=== PATIENT | female | born 1935 | race Caucasian/White ===

== ENCOUNTER 2017-05-11 01:12 | Inpatient (IN) ==
[2017-05-11 03:19] LABS: Basophils % 0.6 % (0.0-0.8); Eosinophils % 0.6 % (0.00-10.9); Hematocrit 21.2 VOL% (35.7-47.0); Immature Granulocytes % 0.4 %; Immature Granulocytes Absolute 0.02 #; Lymphocytes # 0.6 10*3/uL (1.4-4.0); Lymphocytes % 11.9 % (21.3-54.2); Mean Corpuscular HGB Conc 27.4 GM/DL (32-36); Mean Corpuscular Hemoglobin 22 PG (27-34); Mean Corpuscular Volume 79.1 FL (87-102); Mean Platelet Volume 10.1 FL (9.6-12.0); Monocytes # 0.6 10*3/uL (0.11-0.8); Monocytes % 11.9 % (1.7-12.7); Neutrophils # 3.9 10*3/uL (1.4-7.4); Neutrophils % 74.6 % (38.7-73.9); Platelet Count 164 T/CUMM (130-400); Red Blood Count 2.68 MC/CUMM (3.8-5.5); Red Cell Distribution Width 19.6 % (9.3-17.3); White Blood Count 5.2 T/CUMM (4-12)
[2017-05-11 03:22] LABS: Hemoglobin 5.8 GM/DL (12.0-16.0)
[2017-05-11 03:33] LABS: Alanine Aminotransferase 20 U/L (13-56); Albumin 3.2 G/DL (3.4-5.0); Alkaline Phosphatase 65 U/L (45-117); Aspartate Amino Transferase 48 U/L (0-37); Bilirubin,Total < 0.39 MG/DL (0.2-1.0); Blood Urea Nitrogen 18 MG/DL (7-18); Calcium 8.3 MG/DL (8.5-10.1); Glucose 98 MG/DL (74-106); Osmolality,Calculated 278.5 MOS/KG (273-304); Potassium 4.2 MMOL/L (3.5-5.1); Sodium 139 MMOL/L (136-145)
[2017-05-11] MEDS ORDERED: FUROSEMIDE 40 MG/4 ML VIAL IV PRN (03:50)
[2017-05-11] MEDS ORDERED: SODIUM CHLORIDE 0.9% 1,000 ML IV PRN (03:50)
[2017-05-11 03:51] LABS: Hypochromasia 3+; Macrocytosis 2+; Stomatocytes 1+
[2017-05-11] MEDS ORDERED: ONDANSETRON 4 MG/2 ML VIAL IV PRN (03:55)
[2017-05-11] MEDS ORDERED: BISACODYL 5 MG TABLET PO PRN (03:55)
[2017-05-11] MEDS ORDERED: ACETAMINOPHEN 325 MG TABLET PO PRN (03:55)
[2017-05-11] MEDS ORDERED: ALBUTEROL/IPRATROPIUM 3 ML NEB RESP TX PRN (04:12)
[2017-05-11] MEDS ORDERED: FUROSEMIDE 20 MG/2 ML VIAL IV SCH (08:00)
[2017-05-11] MEDS: ALBUTEROL/IPRATROPIUM 3 ML NEB RESP TX SCH ×4 (08:11→23:17)
[2017-05-11] MEDS ORDERED: LORazepam 0.5 MG TABLET PO SCH (09:00)
[2017-05-11 09:33] LABS: Hematocrit 25.8 VOL% (35.7-47.0); Hemoglobin 7.5 GM/DL (12.0-16.0)
[2017-05-11] MEDS: PANTOPRAZOLE 40 MG TABLET PO SCH (09:36)
[2017-05-11] MEDS: ISOSORBIDE MONONITRATE 30 MG TABLET PO SCH (09:36)
[2017-05-11] MEDS: ARFORMOTEROL 15 MCG/2 ML NEB RESP TX SCH ×2 (10:10→20:19)
[2017-05-11] MEDS: ALPRAZolam 0.5 MG TABLET PO SCH ×2 (11:00→20:00)
[2017-05-11] MEDS: MOMETASONE 220 MCG/PUFF INHALER 14 DOSE INH SCH ×2 (11:01→21:00)
[2017-05-11] MEDS ORDERED: ONDANSETRON 4 MG TABLET PO PRN (12:34)
[2017-05-11] MEDS ORDERED: ALBUTEROL 2.5 MG/3 ML NEB RESP TX PRN (12:34)
[2017-05-11] MEDS ORDERED: POLYETHYLENE GLYCOL POWDER 17 GM PACK PO PRN (12:34)
[2017-05-11] MEDS ORDERED: ACETAMINOPHEN 500 MG TABLET PO PRN (12:34)
[2017-05-11] MEDS ORDERED: NITROGLYCERIN SL 0.4 MG TABLET SL PRN (12:34)
[2017-05-11] MEDS ORDERED: FLUTICASONE 50 MCG NASAL SPRAY 16 GM BOTTLE BOTH NARES PRN (12:34)
[2017-05-11] MEDS ORDERED: CETIRIZINE 10 MG TABLET PO PRN (12:34)
[2017-05-11] MEDS ORDERED: LACTULOSE 20 GM/30 ML UDCUP PO PRN (12:34)
[2017-05-11] MEDS ORDERED: DOCUSATE SODIUM 100 MG CAPSULE PO SCH (13:00)
[2017-05-11] MEDS: FUROSEMIDE 20 MG/2 ML VIAL IV SCH ×2 (13:21→16:35)
[2017-05-11] MEDS: MULTIVITAMIN (CENTRUM) TABLET PO SCH (13:41)
[2017-05-11] MEDS: THEOPHYLLINE ER 300 MG TABLET PO SCH (16:37)
[2017-05-11 18:34] LABS: Apearance,Urine CLEAR (Clear); Bacteria,Urine Occasional /HPF (Few); Bilirubin,Urine Negative (Negative); Blood, Urine Small mg/dL (Negative); Glucose,Urine (UA) Negative (Negative); Ketones,Urine Negative (Negative); Mucus,Urine Occasional /LPF (Occasional); Nitrite,Urine Negative (Negative); Protein,Urine Negative; RBC,Urine 12 /HPF (0-4); Urine Color Yellow (Yellow); Urine Specific Gravity 1.011 (1.001-1.035); Urine Urobilinogen < 2.0 EU/DL (0.2-1.0); WBC,Urine 4 /HPF (0-6)
[2017-05-11] MEDS ORDERED: MONTELUKAST 10 MG TABLET PO SCH (21:00)
[2017-05-11] MEDS ORDERED: ROSUVASTATIN 10 MG TABLET PO SCH (21:00)
[2017-05-11] MEDS: METOPROLOL TARTRATE 25 MG TABLET PO SCH (22:12)
[2017-05-11 22:56] LABS: Hematocrit 32.9 VOL% (35.7-47.0); Hemoglobin 9.8 GM/DL (12.0-16.0)
[2017-05-12] MEDS: ALBUTEROL/IPRATROPIUM 3 ML NEB RESP TX SCH ×3 (01:41→13:28)
[2017-05-12 05:52] LABS: Basophils % 0.4 % (0.0-0.8); Eosinophils # 0.1 10*3/uL (0.0-0.87); Eosinophils % 0.9 % (0.00-10.9); Hematocrit 33.4 VOL% (35.7-47.0); Hemoglobin 10.1 GM/DL (12.0-16.0); Immature Granulocytes % 0.1 %; Immature Granulocytes Absolute 0.01 #; Lymphocytes # 0.6 10*3/uL (1.4-4.0); Lymphocytes % 8.9 % (21.3-54.2); Mean Corpuscular HGB Conc 30.2 GM/DL (32-36); Mean Corpuscular Hemoglobin 25 PG (27-34); Mean Corpuscular Volume 83.1 FL (87-102); Monocytes # 0.7 10*3/uL (0.11-0.8); Monocytes % 10.1 % (1.7-12.7); Neutrophils # 5.4 10*3/uL (1.4-7.4); Neutrophils % 79.6 % (38.7-73.9); Platelet Count 154 T/CUMM (130-400); Red Blood Count 4.02 MC/CUMM (3.8-5.5); Red Cell Distribution Width 18.6 % (9.3-17.3); White Blood Count 6.7 T/CUMM (4-12)
[2017-05-12 06:09] LABS: Calcium 8.5 MG/DL (8.5-10.1); Osmolality,Calculated 281.4 MOS/KG (273-304); Potassium 3.7 MMOL/L (3.5-5.1)
[2017-05-12] MEDS: ARFORMOTEROL 15 MCG/2 ML NEB RESP TX SCH (07:24)
[2017-05-12] MEDS ORDERED: POLYETHYLENE GLYCOL POWDER 17 GM PACK PO SCH ×2 (09:00→21:00)
[2017-05-12] MEDS ORDERED: POTASSIUM CHLORIDE 10 MEQ TABLET PO SCH (09:00)
[2017-05-12] MEDS: THEOPHYLLINE ER 300 MG TABLET PO SCH ×2 (10:00→18:10)
[2017-05-12] MEDS: PANTOPRAZOLE 40 MG TABLET PO SCH (10:00)
[2017-05-12] MEDS: ALPRAZolam 0.5 MG TABLET PO SCH (10:01)
[2017-05-12] MEDS: ISOSORBIDE MONONITRATE 30 MG TABLET PO SCH (10:01)
[2017-05-12] MEDS: MULTIVITAMIN (CENTRUM) TABLET PO SCH (10:01)
[2017-05-12] MEDS: METOPROLOL TARTRATE 25 MG TABLET PO SCH (10:01)
[2017-05-12] MEDS: FUROSEMIDE 20 MG/2 ML VIAL IV SCH ×2 (10:16→18:10)
[2017-05-12] MEDS: MOMETASONE 220 MCG/PUFF INHALER 14 DOSE INH SCH (10:23)
[2017-05-12] MEDS ORDERED: ROSUVASTATIN 10 MG TABLET PO SCH (12:29)
[2017-05-12 17:00] VITALS: BP 114/58
== END 2017-05-12 18:31 | DRG 280 ==
LOC: EDUNIT# → EDBD → N.ED 01:12 → N.TELES 03:46
PROVIDERS: ADMIT Internal Medicine; ATTEND Internal Medicine

== ENCOUNTER 2017-05-13 11:38 | Inpatient (IN) ==
[2017-05-13] MEDS ORDERED: PROPOFOL 1,000 MG/100 ML BOTTLE IV ONE (12:46)
[2017-05-13] MEDS ORDERED: ALBUTEROL/IPRATROPIUM 3 ML NEB RESP TX PRN (13:13)
[2017-05-13] MEDS ORDERED: ONDANSETRON 4 MG/2 ML VIAL IV PRN (13:13)
[2017-05-13 13:24] LABS: ABG Base Excess 1.5 MMOL/L (-2.5-2.5); ABG HCO3 25.8 MMOL/L (20-26); ABG Oxygen Saturation 99.9 % (95-100); ABG PCO2 55.2 MM HG (35-48); ABG PH 7.321 (7.35-7.45); ABG TCO2 26.2 MMOL/L (23-27); Allen Test Positive; Pt O2 Delivery Device Ventilator
[2017-05-13] MEDS ORDERED: NOREPINEPHRINE 4 MG/4 ML VIAL IV ONE (13:42)
[2017-05-13] MEDS: PANTOPRAZOLE 40 MG VIAL IV SCH (13:57)
[2017-05-13] MEDS: NOREPINEPHRINE 8 MG in SODIUM CHLORIDE 0.9% 242 ML IV SCH (13:57)
[2017-05-13] MEDS: PROPOFOL 1,000 MG/100 ML BOTTLE IV SCH (13:57)
[2017-05-13 14:07] LABS: Basophils % 0.1 % (0.0-0.8); Hematocrit 35.2 VOL% (35.7-47.0); Hemoglobin 10.4 GM/DL (12.0-16.0); Immature Granulocytes % 0.4 %; Immature Granulocytes Absolute 0.04 #; Lymphocytes # 0.4 10*3/uL (1.4-4.0); Lymphocytes % 3.9 % (21.3-54.2); Mean Corpuscular HGB Conc 29.5 GM/DL (32-36); Mean Corpuscular Hemoglobin 25 PG (27-34); Mean Platelet Volume 10.5 FL (9.6-12.0); Monocytes # 0.7 10*3/uL (0.11-0.8); Neutrophils % 87.6 % (38.7-73.9); Platelet Count 158 T/CUMM (130-400); Red Blood Count 4.14 MC/CUMM (3.8-5.5); Red Cell Distribution Width 20.3 % (9.3-17.3); White Blood Count 9.2 T/CUMM (4-12)
[2017-05-13 14:13] LABS: INR 1.1; PT Patient Result 11.8 SECS
[2017-05-13] MEDS ORDERED: SODIUM CHLORIDE 0.9% 500 ML IV ONE (14:24)
[2017-05-13] MEDS ORDERED: LEVOFLOXACIN INJ 500 MG in PREMIX 1 EACH IV SCH (14:30)
[2017-05-13] MEDS: SODIUM CHLORIDE 0.9% 1,000 ML IV SCH (14:31)
[2017-05-13 14:34] LABS: Albumin 3.4 G/DL (3.4-5.0); Bilirubin,Total 0.7 MG/DL (0.2-1.0); Calcium 8.5 MG/DL (8.5-10.1); Osmolality,Calculated 291.3 MOS/KG (273-304); Potassium 4.5 MMOL/L (3.5-5.1); Total Protein 6.2 G/DL (6.4-8.3)
[2017-05-13] MEDS ORDERED: LEVOFLOXACIN INJ 250 MG in PREMIX 1 EACH IV SCH (15:00)
[2017-05-13 15:34] LABS: Apearance,Urine CLOUDY (Clear); Bilirubin,Urine Negative (Negative); Blood, Urine Large mg/dL (Negative); Glucose,Urine (UA) Negative (Negative); Hyaline Casts,Urine 23 /LPF (0-3); Ketones,Urine Negative (Negative); Mucus,Urine Occasional /LPF (Occasional); Nitrite,Urine Negative (Negative); Protein,Urine 100 MG/DL; RBC,Urine 490 /HPF (0-4); Squamous Epithelial Cell,Urine Occasional /HPF (0-10); Urine Color Amber (Yellow); Urine Specific Gravity 1.016 (1.001-1.035); WBC,Urine 56 /HPF (0-6)
[2017-05-13] MEDS: MEROPENEM 500 MG in SYRINGE 1 EACH IV SCH (16:37)
[2017-05-13] MEDS ORDERED: SODIUM CHLORIDE 0.9% 1,200 ML IV ONE (16:38)
[2017-05-13] MEDS ORDERED: ROSUVASTATIN 10 MG TABLET PO SCH (21:00)
[2017-05-13] MEDS: ALBUTEROL/IPRATROPIUM 3 ML NEB RESP TX SCH (21:16)
[2017-05-13 21:25] LABS: Poikilocytosis 1+
[2017-05-13 21:26] LABS: Hypochromasia Slight; Platelet Estimate Normal; Spherocytes Few; Tear Drop Cells Few
[2017-05-14 01:21] LABS: Basophils % 0.3 % (0.0-0.8); Hematocrit 31.3 VOL% (35.7-47.0); Hemoglobin 9.7 GM/DL (12.0-16.0); Immature Granulocytes % 0.4 %; Immature Granulocytes Absolute 0.05 #; Lymphocytes # 0.6 10*3/uL (1.4-4.0); Lymphocytes % 4.8 % (21.3-54.2); Mean Corpuscular Hemoglobin 25 PG (27-34); Mean Corpuscular Volume 80.7 FL (87-102); Mean Platelet Volume 10.4 FL (9.6-12.0); Monocytes # 0.8 10*3/uL (0.11-0.8); Monocytes % 7.2 % (1.7-12.7); Neutrophils # 9.9 10*3/uL (1.4-7.4); Neutrophils % 87.3 % (38.7-73.9); Platelet Count 147 T/CUMM (130-400); Red Blood Count 3.88 MC/CUMM (3.8-5.5); Red Cell Distribution Width 20.8 % (9.3-17.3); White Blood Count 11.4 T/CUMM (4-12)
[2017-05-14] MEDS: ALBUTEROL/IPRATROPIUM 3 ML NEB RESP TX SCH ×4 (01:33→20:31)
[2017-05-14 01:50] LABS: Bilirubin,Total 0.5 MG/DL (0.2-1.0); Calcium 8.1 MG/DL (8.5-10.1); Total Protein 5.4 G/DL (6.4-8.3)
[2017-05-14] MEDS: SODIUM CHLORIDE 0.9% 1,000 ML IV SCH ×3 (02:00→16:10)
[2017-05-14 02:44] LABS: Band Neutrophils 9 % (0-10); Lymphocytes 5 % (20-55); Metamyelocytes 1 %; Myelocytes 2 %; Segmented Neutrophils 81 % (50-85); Total Cells Counted 100
[2017-05-14 02:46] LABS: Anisocytosis 1+; Hypochromasia 1+; Platelet Estimate Adequate; Target Cells Few
[2017-05-14] MEDS: MEROPENEM 500 MG in SYRINGE 1 EACH IV SCH ×2 (04:20→14:30)
[2017-05-14 08:20] LABS: ABG Base Excess 8.5 MMOL/L (-2.5-2.5); ABG HCO3 32.3 MMOL/L (20-26); ABG PCO2 38.4 MM HG (35-48); ABG PH 7.528 (7.35-7.45); ABG TCO2 29.1 MMOL/L (23-27)
[2017-05-14] MEDS: ASPIRIN CHEW 81 MG TABLET PO SCH (09:55)
[2017-05-14 11:38] LABS: INR 1.2; PT Patient Result 12.8 SECS
[2017-05-14 12:09] LABS: Albumin 2.8 G/DL (3.4-5.0); Bilirubin,Direct 0.22 MG/DL (0.0-0.20); Bilirubin,Indirect 0.7 MG/DL (0.0-1.0); Bilirubin,Total 0.9 MG/DL (0.2-1.0); Total Protein 5.1 G/DL (6.4-8.3)
[2017-05-14] MEDS: PANTOPRAZOLE 40 MG VIAL IV SCH (12:45)
[2017-05-14] MEDS: ENOXAPARIN 30 MG/0.3 ML SYRINGE SUBCUT SCH (12:45)
[2017-05-14] MEDS: PROPOFOL 1,000 MG/100 ML BOTTLE IV SCH ×2 (12:48→13:05)
[2017-05-14] MEDS: NOREPINEPHRINE 8 MG in SODIUM CHLORIDE 0.9% 242 ML IV SCH (13:05)
[2017-05-14] MEDS: ZINC OXIDE PASTE 113 GM TUBE TOP SCH ×2 (14:12→20:25)
[2017-05-14] MEDS ORDERED: GLUCAGON 1 MG VIAL IM PRN (15:46)
[2017-05-14] MEDS ORDERED: DEXTROSE 50% 25 GM/50 ML VIAL IV PRN (15:46)
[2017-05-14] MEDS: INSULIN REGULAR 100 UNIT/ML SUBCUT SCH ×2 (17:04→23:57)
[2017-05-15] MEDS: ALBUTEROL/IPRATROPIUM 3 ML NEB RESP TX SCH ×4 (00:25→19:51)
[2017-05-15] MEDS: SODIUM CHLORIDE 0.9% 1,000 ML IV SCH ×2 (03:09→19:28)
[2017-05-15] MEDS: PROPOFOL 1,000 MG/100 ML BOTTLE IV SCH (03:10)
[2017-05-15] MEDS: MEROPENEM 500 MG in SYRINGE 1 EACH IV SCH ×2 (03:11→18:37)
[2017-05-15 04:35] LABS: ABG Base Excess 7.7 MMOL/L (-2.5-2.5); ABG HCO3 32.2 MMOL/L (20-26); ABG Oxygen Saturation 98.4 % (95-100); ABG PCO2 45.6 MM HG (35-48); ABG PH 7.467 (7.35-7.45); ABG PO2 139.2 MM HG (80-95); ABG TCO2 33.6 MMOL/L (23-27); Allen Test Positive; Pt O2 Delivery Device Ventilator
[2017-05-15 04:49] LABS: Basophils % 0.2 % (0.0-0.8); Eosinophils % 0.2 % (0.00-10.9); Hematocrit 31.3 VOL% (35.7-47.0); Hemoglobin 9.3 GM/DL (12.0-16.0); Immature Granulocytes % 0.4 %; Immature Granulocytes Absolute 0.03 #; Lymphocytes # 0.3 10*3/uL (1.4-4.0); Lymphocytes % 3.2 % (21.3-54.2); Mean Corpuscular HGB Conc 29.7 GM/DL (32-36); Mean Corpuscular Hemoglobin 25 PG (27-34); Mean Platelet Volume 10.7 FL (9.6-12.0); Monocytes # 0.6 10*3/uL (0.11-0.8); Monocytes % 7.3 % (1.7-12.7); Neutrophils # 7.3 10*3/uL (1.4-7.4); Neutrophils % 88.7 % (38.7-73.9); Platelet Count 131 T/CUMM (130-400); Red Blood Count 3.77 MC/CUMM (3.8-5.5); Red Cell Distribution Width 21.2 % (9.3-17.3); White Blood Count 8.3 T/CUMM (4-12)
[2017-05-15 05:13] LABS: Phosphorous 2.5 MG/DL (2.5-4.9); Prealbumin 9.3 MG/DL (20-40)
[2017-05-15 05:19] LABS: Albumin 2.6 G/DL (3.4-5.0); Bilirubin,Total 0.8 MG/DL (0.2-1.0); Calcium 7.9 MG/DL (8.5-10.1); Osmolality,Calculated 300.6 MOS/KG (273-304); Potassium 3.3 MMOL/L (3.5-5.1); Total Protein 5.1 G/DL (6.4-8.3)
[2017-05-15 05:29] LABS: Band Neutrophils 1 % (0-10); Lymphocytes 5 % (20-55); Segmented Neutrophils 90 % (50-85); Total Cells Counted 100
[2017-05-15 05:30] LABS: Hypochromasia 1+; Microcytosis 1+; Platelet Estimate Normal; Target Cells Slight
[2017-05-15] MEDS: INSULIN REGULAR 100 UNIT/ML SUBCUT SCH ×3 (06:37→19:27)
[2017-05-15] MEDS: ZINC OXIDE PASTE 113 GM TUBE TOP SCH ×2 (09:43→20:51)
[2017-05-15] MEDS: ASPIRIN CHEW 81 MG TABLET PO SCH (09:43)
[2017-05-15] MEDS: ENOXAPARIN 30 MG/0.3 ML SYRINGE SUBCUT SCH (12:13)
[2017-05-15] MEDS: methylPREDNISolone SOD SUC 40 MG/1 ML VIAL IV SCH ×2 (12:14→19:24)
[2017-05-15] MEDS: PANTOPRAZOLE 40 MG VIAL IV SCH (12:50)
[2017-05-15] MEDS: ALBUTEROL 2.5 MG/3 ML NEB RESP TX PRN (17:15)
[2017-05-15] MEDS: NOREPINEPHRINE 8 MG in SODIUM CHLORIDE 0.9% 242 ML IV SCH (18:33)
[2017-05-16] MEDS: INSULIN REGULAR 100 UNIT/ML SUBCUT SCH ×4 (00:47→19:15)
[2017-05-16] MEDS: PROPOFOL 1,000 MG/100 ML BOTTLE IV SCH ×4 (00:50→21:31)
[2017-05-16] MEDS: ALBUTEROL/IPRATROPIUM 3 ML NEB RESP TX SCH ×4 (01:40→20:00)
[2017-05-16] MEDS: methylPREDNISolone SOD SUC 40 MG/1 ML VIAL IV SCH ×3 (04:00→21:31)
[2017-05-16] MEDS: MEROPENEM 500 MG in SYRINGE 1 EACH IV SCH ×2 (04:00→15:14)
[2017-05-16] MEDS: SODIUM CHLORIDE 0.9% 1,000 ML IV SCH (05:20)
[2017-05-16 05:35] LABS: Basophils % 0.2 % (0.0-0.8); Hematocrit 32.5 VOL% (35.7-47.0); Hemoglobin 9.7 GM/DL (12.0-16.0); Immature Granulocytes % 0.4 %; Immature Granulocytes Absolute 0.02 #; Lymphocytes # 0.2 10*3/uL (1.4-4.0); Lymphocytes % 3.2 % (21.3-54.2); Mean Corpuscular HGB Conc 29.8 GM/DL (32-36); Mean Corpuscular Hemoglobin 25 PG (27-34); Mean Corpuscular Volume 84.2 FL (87-102); Mean Platelet Volume 10.1 FL (9.6-12.0); Monocytes # 0.2 10*3/uL (0.11-0.8); Monocytes % 3.2 % (1.7-12.7); Neutrophils # 4.6 10*3/uL (1.4-7.4); Platelet Count 111 T/CUMM (130-400); Red Blood Count 3.86 MC/CUMM (3.8-5.5); Red Cell Distribution Width 20.9 % (9.3-17.3)
[2017-05-16 05:52] LABS: Calcium 7.9 MG/DL (8.5-10.1); Magnesium 2.2 MG/DL (1.8-2.4); Osmolality,Calculated 306.1 MOS/KG (273-304); Potassium 3.5 MMOL/L (3.5-5.1)
[2017-05-16 06:13] LABS: Band Neutrophils 1 % (0-10); Hypochromasia 1+; Lymphocytes 5 % (20-55); Microcytosis 1+; Segmented Neutrophils 93 % (50-85); Total Cells Counted 100
[2017-05-16 06:14] LABS: Ovalocytes Slight; Platelet Estimate Adequate
[2017-05-16 06:25] LABS: Albumin 2.6 G/DL (3.4-5.0); Bilirubin,Total 0.4 MG/DL (0.2-1.0); Osmolality,Calculated 303.3 MOS/KG (273-304); Potassium 3.4 MMOL/L (3.5-5.1); Total Protein 5.2 G/DL (6.4-8.3)
[2017-05-16] MEDS: ASPIRIN CHEW 81 MG TABLET PO SCH (09:40)
[2017-05-16] MEDS: ZINC OXIDE PASTE 113 GM TUBE TOP SCH ×2 (09:40→21:32)
[2017-05-16] MEDS: ENOXAPARIN 30 MG/0.3 ML SYRINGE SUBCUT SCH (11:55)
[2017-05-16] MEDS: LACTULOSE 160 GM/240 ML BOTTLE RECTAL SCH ×2 (14:22→22:16)
[2017-05-16] MEDS: PANTOPRAZOLE 40 MG VIAL IV SCH (14:23)
[2017-05-16] MEDS: NOREPINEPHRINE 8 MG in SODIUM CHLORIDE 0.9% 242 ML IV SCH (14:24)
[2017-05-16] MEDS: SODIUM CHLORIDE 0.45% 1,000 ML IV SCH ×2 (14:24→22:16)
[2017-05-16] MEDS ORDERED: SODIUM CHLORIDE 0.45% 500 ML IV ONE (21:08)
[2017-05-16] MEDS: MONTELUKAST 10 MG TABLET PO SCH (21:32)
[2017-05-16] MEDS: LACTULOSE 20 GM/30 ML UDCUP PO SCH (21:44)
[2017-05-17] MEDS: INSULIN REGULAR 100 UNIT/ML SUBCUT SCH ×4 (00:40→19:05)
[2017-05-17] MEDS: ALBUTEROL/IPRATROPIUM 3 ML NEB RESP TX SCH ×4 (01:51→19:45)
[2017-05-17 03:26] LABS: ABG Base Excess 3.2 MMOL/L (-2.5-2.5); ABG HCO3 27.3 MMOL/L (20-26); ABG Oxygen Saturation 99.4 % (95-100); ABG PCO2 40.6 MM HG (35-48); ABG TCO2 25.2 MMOL/L (23-27); Allen Test Positive; Pt O2 Delivery Device Ventilator
[2017-05-17] MEDS: LACTULOSE 20 GM/30 ML UDCUP PO SCH ×6 (03:36→21:38)
[2017-05-17] MEDS: methylPREDNISolone SOD SUC 40 MG/1 ML VIAL IV SCH ×3 (03:36→21:38)
[2017-05-17] MEDS: MEROPENEM 500 MG in SYRINGE 1 EACH IV SCH (03:37)
[2017-05-17 06:01] LABS: Hematocrit 33.4 VOL% (35.7-47.0); Hemoglobin 9.9 GM/DL (12.0-16.0); Immature Granulocytes % 0.4 %; Immature Granulocytes Absolute 0.03 #; Lymphocytes # 0.2 10*3/uL (1.4-4.0); Mean Corpuscular HGB Conc 29.6 GM/DL (32-36); Mean Corpuscular Hemoglobin 25 PG (27-34); Mean Corpuscular Volume 83.1 FL (87-102); Mean Platelet Volume 11.1 FL (9.6-12.0); Monocytes # 0.4 10*3/uL (0.11-0.8); Monocytes % 5.8 % (1.7-12.7); Neutrophils # 6.4 10*3/uL (1.4-7.4); Neutrophils % 90.8 % (38.7-73.9); Platelet Count 120 T/CUMM (130-400); Red Blood Count 4.02 MC/CUMM (3.8-5.5); Red Cell Distribution Width 20.6 % (9.3-17.3); White Blood Count 7.1 T/CUMM (4-12)
[2017-05-17] MEDS: PROPOFOL 1,000 MG/100 ML BOTTLE IV SCH ×2 (06:42→17:04)
[2017-05-17 06:47] LABS: Band Neutrophils 13 % (0-10); Hypochromasia Slight; Lymphocytes 7 % (20-55); Macrocytosis 1+; Nucleated Red Blood Cells 1 (0-5); Platelet Estimate Adequate; Segmented Neutrophils 74 % (50-85); Total Cells Counted 100
[2017-05-17 08:45] LABS: Calcium 7.8 MG/DL (8.5-10.1); Magnesium 2.3 MG/DL (1.8-2.4); Osmolality,Calculated 297.6 MOS/KG (273-304); Potassium 3.4 MMOL/L (3.5-5.1)
[2017-05-17 09:09] LABS: Alanine Aminotransferase 966 U/L (13-56); Albumin 2.5 G/DL (3.4-5.0); Alkaline Phosphatase 79 U/L (45-117); Aspartate Amino Transferase 446 U/L (0-37); Bilirubin,Total < 0.39 MG/DL (0.2-1.0); Blood Urea Nitrogen 25 MG/DL (7-18); Calcium 7.9 MG/DL (8.5-10.1); Glucose 165 MG/DL (74-106); Osmolality,Calculated 293.8 MOS/KG (273-304); Potassium 3.4 MMOL/L (3.5-5.1); Sodium 144 MMOL/L (136-145); Total Protein 5.1 G/DL (6.4-8.3)
[2017-05-17] MEDS: ASPIRIN CHEW 81 MG TABLET PO SCH (11:19)
[2017-05-17] MEDS: ZINC OXIDE PASTE 113 GM TUBE TOP SCH (11:20)
[2017-05-17] MEDS: ENOXAPARIN 30 MG/0.3 ML SYRINGE SUBCUT SCH (11:20)
[2017-05-17] MEDS: SODIUM CHLORIDE 0.45% 1,000 ML IV SCH (11:33)
[2017-05-17] MEDS: LEVOFLOXACIN INJ 500 MG in PREMIX 1 EACH IV SCH (13:00)
[2017-05-17] MEDS: POTASSIUM CHLORIDE 20 MEQ/15 ML UDCUP PER TUBE PRN ×3 (13:00→17:05)
[2017-05-17] MEDS: SODIUM PHOSPHATE ENEMA 133 ML BOTTLE RECTAL PRN (13:01)
[2017-05-17] MEDS: PANTOPRAZOLE 40 MG VIAL IV SCH (13:01)
[2017-05-17] MEDS: NOREPINEPHRINE 8 MG in SODIUM CHLORIDE 0.9% 242 ML IV SCH (15:34)
[2017-05-17] MEDS: MONTELUKAST 10 MG TABLET PO SCH (21:38)
[2017-05-18] MEDS: PROPOFOL 1,000 MG/100 ML BOTTLE IV SCH (01:27)
[2017-05-18] MEDS: ALBUTEROL/IPRATROPIUM 3 ML NEB RESP TX SCH ×6 (01:30→23:36)
[2017-05-18] MEDS: SODIUM CHLORIDE 0.45% 1,000 ML IV SCH (01:32)
[2017-05-18] MEDS: INSULIN REGULAR 100 UNIT/ML SUBCUT SCH ×4 (01:32→18:20)
[2017-05-18] MEDS: methylPREDNISolone SOD SUC 40 MG/1 ML VIAL IV SCH ×3 (03:08→18:31)
[2017-05-18] MEDS: LACTULOSE 20 GM/30 ML UDCUP PO SCH ×4 (03:08→22:02)
[2017-05-18] MEDS: ZINC OXIDE PASTE 113 GM TUBE TOP SCH ×3 (05:24→22:02)
[2017-05-18 05:39] LABS: Hematocrit 32.1 VOL% (35.7-47.0); Hemoglobin 9.4 GM/DL (12.0-16.0); Immature Granulocytes % 0.3 %; Immature Granulocytes Absolute 0.02 #; Lymphocytes # 0.2 10*3/uL (1.4-4.0); Lymphocytes % 3.1 % (21.3-54.2); Mean Corpuscular HGB Conc 29.3 GM/DL (32-36); Mean Corpuscular Hemoglobin 25 PG (27-34); Mean Corpuscular Volume 83.8 FL (87-102); Mean Platelet Volume 10.9 FL (9.6-12.0); Monocytes # 0.4 10*3/uL (0.11-0.8); Monocytes % 6.1 % (1.7-12.7); Neutrophils % 90.5 % (38.7-73.9); Platelet Count 104 T/CUMM (130-400); Red Blood Count 3.83 MC/CUMM (3.8-5.5); Red Cell Distribution Width 20.6 % (9.3-17.3); White Blood Count 6.7 T/CUMM (4-12)
[2017-05-18 06:30] LABS: Albumin 2.4 G/DL (3.4-5.0); Bilirubin,Total 0.7 MG/DL (0.2-1.0); Calcium 8.2 MG/DL (8.5-10.1); Magnesium 2.2 MG/DL (1.8-2.4); Osmolality,Calculated 289.8 MOS/KG (273-304); Potassium 4.4 MMOL/L (3.5-5.1); Total Protein 4.9 G/DL (6.4-8.3)
[2017-05-18 06:58] LABS: Band Neutrophils 13 % (0-10); Hypochromasia 1+; Lymphocytes 3 % (20-55); Platelet Estimate Decreased; Segmented Neutrophils 79 % (50-85); Total Cells Counted 100
[2017-05-18 07:20] LABS: ABG Base Excess 0.1 MMOL/L (-2.5-2.5); ABG HCO3 24.5 MMOL/L (20-26); ABG Oxygen Saturation 98.1 % (95-100); ABG PCO2 55.5 MM HG (35-48); ABG PH 7.301 (7.35-7.45)
[2017-05-18] MEDS ORDERED: FUROSEMIDE 40 MG/4 ML VIAL IV ONE (08:03)
[2017-05-18] MEDS: ASPIRIN CHEW 81 MG TABLET PO SCH (08:23)
[2017-05-18 08:32] LABS: Hepatitis A Ab IgM Quant 0.26 Index; Hepatitis A Ab IgM Result Negative (Negative); Hepatitis B Core IgM Quant 0.24 Index; Hepatitis B Core IgM Result Negative (Negative); Hepatitis B Surface Ag Quant < 0.10 Index; Hepatitis B Surface Ag Result Negative (Negative); Hepatitis C Virus Ab Quant < 0.02 Index; Hepatitis C Virus Ab Result Negative (Negative)
[2017-05-18] MEDS: ENOXAPARIN 30 MG/0.3 ML SYRINGE SUBCUT SCH (12:23)
[2017-05-18] MEDS: METOCLOPRAMIDE 10 MG/2 ML VIAL IV SCH ×2 (12:28→18:34)
[2017-05-18] MEDS: LEVOFLOXACIN INJ 500 MG in PREMIX 1 EACH IV SCH (12:31)
[2017-05-18] MEDS: NOREPINEPHRINE 8 MG in SODIUM CHLORIDE 0.9% 242 ML IV SCH (15:10)
[2017-05-18] MEDS: PANTOPRAZOLE 40 MG VIAL IV SCH (15:13)
[2017-05-18] MEDS: MONTELUKAST 10 MG TABLET PO SCH (22:02)
[2017-05-19] MEDS ORDERED: SODIUM CHLORIDE 0.9% 1,000 ML IV SCH (01:00)
[2017-05-19] MEDS: INSULIN REGULAR 100 UNIT/ML SUBCUT SCH ×5 (02:14→23:30)
[2017-05-19] MEDS: METOCLOPRAMIDE 10 MG/2 ML VIAL IV SCH ×4 (02:22→18:05)
[2017-05-19] MEDS: ALBUTEROL/IPRATROPIUM 3 ML NEB RESP TX SCH ×5 (03:37→19:10)
[2017-05-19] MEDS: methylPREDNISolone SOD SUC 40 MG/1 ML VIAL IV SCH ×3 (03:49→19:04)
[2017-05-19 04:46] LABS: Basophils % 0.1 % (0.0-0.8); Hematocrit 33.1 VOL% (35.7-47.0); Hemoglobin 9.8 GM/DL (12.0-16.0); Immature Granulocytes % 0.7 %; Immature Granulocytes Absolute 0.08 #; Lymphocytes # 0.5 10*3/uL (1.4-4.0); Lymphocytes % 4.1 % (21.3-54.2); Mean Corpuscular HGB Conc 29.6 GM/DL (32-36); Mean Corpuscular Hemoglobin 25 PG (27-34); Mean Corpuscular Volume 83.2 FL (87-102); Mean Platelet Volume 10.4 FL (9.6-12.0); Monocytes # 1.5 10*3/uL (0.11-0.8); Monocytes % 12.8 % (1.7-12.7); Neutrophils # 9.8 10*3/uL (1.4-7.4); Neutrophils % 82.3 % (38.7-73.9); Platelet Count 128 T/CUMM (130-400); Red Blood Count 3.98 MC/CUMM (3.8-5.5); White Blood Count 11.8 T/CUMM (4-12)
[2017-05-19 05:38] LABS: Band Neutrophils 1 % (0-10); Lymphocytes 6 % (20-55); Segmented Neutrophils 83 % (50-85); Total Cells Counted 100
[2017-05-19 05:39] LABS: Hypochromasia 1+; Microcytosis 1+; Platelet Estimate Adequate
[2017-05-19 07:03] LABS: Albumin 2.7 G/DL (3.4-5.0); Bilirubin,Total 1.1 MG/DL (0.2-1.0); Calcium 8.3 MG/DL (8.5-10.1); Osmolality,Calculated 291.6 MOS/KG (273-304); Potassium 4.6 MMOL/L (3.5-5.1); Total Protein 5.3 G/DL (6.4-8.3)
[2017-05-19 07:04] LABS: Calcium 8.2 MG/DL (8.5-10.1); Magnesium 2.3 MG/DL (1.8-2.4); Osmolality,Calculated 287.8 MOS/KG (273-304); Potassium 4.5 MMOL/L (3.5-5.1)
[2017-05-19] MEDS: ASPIRIN CHEW 81 MG TABLET PO SCH (08:55)
[2017-05-19] MEDS: LACTULOSE 20 GM/30 ML UDCUP PO SCH (08:56)
[2017-05-19] MEDS: ZINC OXIDE PASTE 113 GM TUBE TOP SCH ×2 (08:57→22:00)
[2017-05-19] MEDS: NEBIVOLOL 5 MG TABLET PO SCH ×2 (10:15→22:09)
[2017-05-19] MEDS: amLODIPine 2.5 MG TABLET PO SCH (10:15)
[2017-05-19] MEDS: ENOXAPARIN 30 MG/0.3 ML SYRINGE SUBCUT SCH (12:03)
[2017-05-19] MEDS: LEVOFLOXACIN INJ 500 MG in PREMIX 1 EACH IV SCH (12:11)
[2017-05-19] MEDS: PANTOPRAZOLE 40 MG VIAL IV SCH (12:32)
[2017-05-19] MEDS: NOREPINEPHRINE 8 MG in SODIUM CHLORIDE 0.9% 242 ML IV SCH (14:59)
[2017-05-19] MEDS: MONTELUKAST 10 MG TABLET PO SCH (22:10)
[2017-05-20] MEDS: METOCLOPRAMIDE 10 MG/2 ML VIAL IV SCH ×4 (00:30→17:48)
[2017-05-20] MEDS: ALBUTEROL/IPRATROPIUM 3 ML NEB RESP TX SCH ×7 (00:45→23:14)
[2017-05-20] MEDS: methylPREDNISolone SOD SUC 40 MG/1 ML VIAL IV SCH ×3 (03:15→18:22)
[2017-05-20 03:44] LABS: ABG Base Excess 8.2 MMOL/L (-2.5-2.5); ABG Oxygen Saturation 97.3 % (95-100); ABG PCO2 56.6 MM HG (35-48); ABG PH 7.397 (7.35-7.45); ABG PO2 104.5 MM HG (80-95); ABG TCO2 35.8 MMOL/L (23-27)
[2017-05-20 05:20] LABS: Calcium 8.2 MG/DL (8.5-10.1); Magnesium 2.4 MG/DL (1.8-2.4); Osmolality,Calculated 288.8 MOS/KG (273-304); Potassium 4.1 MMOL/L (3.5-5.1)
[2017-05-20] MEDS: INSULIN REGULAR 100 UNIT/ML SUBCUT SCH ×3 (08:34→18:16)
[2017-05-20 08:42] LABS: Basophils % 0.1 % (0.0-0.8); Hematocrit 29.8 VOL% (35.7-47.0); Hemoglobin 8.7 GM/DL (12.0-16.0); Immature Granulocytes % 0.8 %; Immature Granulocytes Absolute 0.06 #; Lymphocytes # 0.4 10*3/uL (1.4-4.0); Lymphocytes % 4.8 % (21.3-54.2); Mean Corpuscular HGB Conc 29.2 GM/DL (32-36); Mean Corpuscular Hemoglobin 24 PG (27-34); Mean Corpuscular Volume 83.7 FL (87-102); Mean Platelet Volume 10.6 FL (9.6-12.0); Monocytes # 0.5 10*3/uL (0.11-0.8); Monocytes % 5.9 % (1.7-12.7); Neutrophils # 6.8 10*3/uL (1.4-7.4); Neutrophils % 88.4 % (38.7-73.9); Platelet Count 134 T/CUMM (130-400); Red Blood Count 3.56 MC/CUMM (3.8-5.5); Red Cell Distribution Width 20.2 % (9.3-17.3); White Blood Count 7.7 T/CUMM (4-12)
[2017-05-20 09:13] LABS: Band Neutrophils 2 % (0-10); Lymphocytes 2 % (20-55); Nucleated Red Blood Cells 1 (0-5); Segmented Neutrophils 88 % (50-85); Total Cells Counted 100
[2017-05-20 09:14] LABS: Hypochromasia 2+; Microcytosis 1+; Ovalocytes Slight; Platelet Estimate Adequate
[2017-05-20] MEDS: NEBIVOLOL 5 MG TABLET PO SCH ×2 (09:25→22:02)
[2017-05-20] MEDS: ASPIRIN CHEW 81 MG TABLET PO SCH (09:25)
[2017-05-20] MEDS: amLODIPine 2.5 MG TABLET PO SCH (09:25)
[2017-05-20] MEDS: ZINC OXIDE PASTE 113 GM TUBE TOP SCH ×2 (09:25→22:03)
[2017-05-20] MEDS: ENOXAPARIN 30 MG/0.3 ML SYRINGE SUBCUT SCH (11:50)
[2017-05-20] MEDS: LEVOFLOXACIN INJ 500 MG in PREMIX 1 EACH IV SCH (12:32)
[2017-05-20] MEDS: PANTOPRAZOLE 40 MG VIAL IV SCH (13:11)
[2017-05-20] MEDS: MONTELUKAST 10 MG TABLET PO SCH (22:02)
[2017-05-21] MEDS: METOCLOPRAMIDE 10 MG/2 ML VIAL IV SCH ×4 (00:30→17:31)
[2017-05-21] MEDS: ALBUTEROL/IPRATROPIUM 3 ML NEB RESP TX SCH ×6 (03:05→23:55)
[2017-05-21 03:12] LABS: ABG Base Excess 6.7 MMOL/L (-2.5-2.5); ABG HCO3 30.5 MMOL/L (20-26); ABG Oxygen Saturation 95.6 % (95-100); ABG PCO2 60.5 MM HG (35-48); ABG PH 7.351 (7.35-7.45); ABG TCO2 31.7 MMOL/L (23-27)
[2017-05-21] MEDS: methylPREDNISolone SOD SUC 40 MG/1 ML VIAL IV SCH ×3 (03:30→15:21)
[2017-05-21] MEDS: INSULIN REGULAR 100 UNIT/ML SUBCUT SCH ×4 (06:53→17:31)
[2017-05-21 08:06] LABS: Hematocrit 23.4 VOL% (35.7-47.0); Immature Granulocytes % 0.9 %; Immature Granulocytes Absolute 0.06 #; Lymphocytes # 0.4 10*3/uL (1.4-4.0); Lymphocytes % 5.7 % (21.3-54.2); Mean Corpuscular HGB Conc 29.9 GM/DL (32-36); Mean Corpuscular Hemoglobin 25 PG (27-34); Mean Corpuscular Volume 84.5 FL (87-102); Mean Platelet Volume 9.9 FL (9.6-12.0); Monocytes # 0.2 10*3/uL (0.11-0.8); Monocytes % 3.5 % (1.7-12.7); Neutrophils # 6.2 10*3/uL (1.4-7.4); Neutrophils % 89.9 % (38.7-73.9); Platelet Count 144 T/CUMM (130-400); Red Blood Count 2.77 MC/CUMM (3.8-5.5); White Blood Count 6.9 T/CUMM (4-12)
[2017-05-21] MEDS: ASPIRIN CHEW 81 MG TABLET PO SCH (09:39)
[2017-05-21] MEDS: NEBIVOLOL 5 MG TABLET PO SCH ×2 (09:40→21:41)
[2017-05-21] MEDS: amLODIPine 2.5 MG TABLET PO SCH (09:40)
[2017-05-21] MEDS: ZINC OXIDE PASTE 113 GM TUBE TOP SCH ×2 (09:41→21:42)
[2017-05-21] MEDS: ENOXAPARIN 30 MG/0.3 ML SYRINGE SUBCUT SCH (12:36)
[2017-05-21] MEDS: PANTOPRAZOLE 40 MG VIAL IV SCH (12:40)
[2017-05-21] MEDS: LEVOFLOXACIN INJ 500 MG in PREMIX 1 EACH IV SCH (12:45)
[2017-05-21] MEDS ORDERED: SODIUM CHLORIDE 0.9% 1,000 ML IV PRN (13:06)
[2017-05-21] MEDS: THEOPHYLLINE ER 300 MG TABLET PO SCH (18:12)
[2017-05-21] MEDS: ARFORMOTEROL 15 MCG/2 ML NEB RESP TX SCH (20:34)
[2017-05-21] MEDS: MONTELUKAST 10 MG TABLET PO SCH (21:41)
[2017-05-22] MEDS: INSULIN REGULAR 100 UNIT/ML SUBCUT SCH ×4 (01:02→17:05)
[2017-05-22] MEDS: METOCLOPRAMIDE 10 MG/2 ML VIAL IV SCH ×5 (01:03→23:53)
[2017-05-22] MEDS: methylPREDNISolone SOD SUC 40 MG/1 ML VIAL IV SCH ×2 (02:49→16:31)
[2017-05-22] MEDS: ALBUTEROL/IPRATROPIUM 3 ML NEB RESP TX SCH ×5 (04:35→21:08)
[2017-05-22 04:53] LABS: Basophils % 0.1 % (0.0-0.8); Hematocrit 34.9 VOL% (35.7-47.0); Hemoglobin 10.8 GM/DL (12.0-16.0); Immature Granulocytes % 0.7 %; Immature Granulocytes Absolute 0.05 #; Lymphocytes # 0.4 10*3/uL (1.4-4.0); Lymphocytes % 5.8 % (21.3-54.2); Mean Corpuscular HGB Conc 30.9 GM/DL (32-36); Mean Corpuscular Hemoglobin 27 PG (27-34); Mean Corpuscular Volume 86.6 FL (87-102); Mean Platelet Volume 10.1 FL (9.6-12.0); Monocytes # 0.6 10*3/uL (0.11-0.8); Monocytes % 8.1 % (1.7-12.7); Neutrophils # 6.2 10*3/uL (1.4-7.4); Neutrophils % 85.3 % (38.7-73.9); Platelet Count 126 T/CUMM (130-400); Red Blood Count 4.03 MC/CUMM (3.8-5.5); Red Cell Distribution Width 17.2 % (9.3-17.3); White Blood Count 7.3 T/CUMM (4-12)
[2017-05-22 05:41] LABS: Calcium 8.1 MG/DL (8.5-10.1); Osmolality,Calculated 288.7 MOS/KG (273-304)
[2017-05-22 05:56] LABS: Albumin 2.7 G/DL (3.4-5.0); Bilirubin,Direct 0.25 MG/DL (0.0-0.20); Bilirubin,Indirect 1.5 MG/DL (0.0-1.0); Bilirubin,Total 1.7 MG/DL (0.2-1.0)
[2017-05-22] MEDS: ARFORMOTEROL 15 MCG/2 ML NEB RESP TX SCH ×2 (07:37→21:07)
[2017-05-22] MEDS: ASPIRIN CHEW 81 MG TABLET PO SCH (09:13)
[2017-05-22] MEDS: amLODIPine 2.5 MG TABLET PO SCH (09:13)
[2017-05-22] MEDS: THEOPHYLLINE ER 300 MG TABLET PO SCH ×2 (09:13→16:32)
[2017-05-22] MEDS: NEBIVOLOL 5 MG TABLET PO SCH ×2 (09:13→22:02)
[2017-05-22] MEDS: PANTOPRAZOLE 40 MG VIAL IV SCH ×2 (12:02→13:21)
[2017-05-22] MEDS: LEVOFLOXACIN INJ 500 MG in PREMIX 1 EACH IV SCH (12:06)
[2017-05-22] MEDS: ZINC OXIDE PASTE 113 GM TUBE TOP SCH ×2 (12:07→22:04)
[2017-05-22] MEDS: ENOXAPARIN 30 MG/0.3 ML SYRINGE SUBCUT SCH (12:11)
[2017-05-22] MEDS: MONTELUKAST 10 MG TABLET PO SCH (22:02)
[2017-05-23] MEDS: INSULIN REGULAR 100 UNIT/ML SUBCUT SCH ×4 (00:26→19:12)
[2017-05-23] MEDS: ALBUTEROL/IPRATROPIUM 3 ML NEB RESP TX SCH ×6 (01:21→21:01)
[2017-05-23] MEDS: methylPREDNISolone SOD SUC 40 MG/1 ML VIAL IV SCH ×2 (02:24→14:43)
[2017-05-23 06:15] LABS: Basophils % 0.2 % (0.0-0.8); Hematocrit 39.3 VOL% (35.7-47.0); Hemoglobin 12.1 GM/DL (12.0-16.0); Immature Granulocytes % 0.6 %; Immature Granulocytes Absolute 0.07 #; Lymphocytes # 0.3 10*3/uL (1.4-4.0); Lymphocytes % 2.7 % (21.3-54.2); Mean Corpuscular HGB Conc 30.8 GM/DL (32-36); Mean Corpuscular Hemoglobin 27 PG (27-34); Mean Corpuscular Volume 87.5 FL (87-102); Mean Platelet Volume 9.5 FL (9.6-12.0); Monocytes # 0.4 10*3/uL (0.11-0.8); Monocytes % 3.2 % (1.7-12.7); Neutrophils # 10.1 10*3/uL (1.4-7.4); Neutrophils % 93.3 % (38.7-73.9); Platelet Count 164 T/CUMM (130-400); Red Blood Count 4.49 MC/CUMM (3.8-5.5); Red Cell Distribution Width 17.9 % (9.3-17.3); White Blood Count 10.8 T/CUMM (4-12)
[2017-05-23] MEDS: METOCLOPRAMIDE 10 MG/2 ML VIAL IV SCH ×4 (06:32→23:58)
[2017-05-23 06:38] LABS: Band Neutrophils 1 % (0-10); Calcium 8.7 MG/DL (8.5-10.1); Lymphocytes 2 % (20-55); Osmolality,Calculated 284.1 MOS/KG (273-304); Potassium 4.2 MMOL/L (3.5-5.1); Segmented Neutrophils 95 % (50-85); Total Cells Counted 100
[2017-05-23 06:39] LABS: Giant Platelets Few; Hypochromasia 1+; Microcytosis Slight; Ovalocytes Slight; Platelet Estimate Normal
[2017-05-23] MEDS: ARFORMOTEROL 15 MCG/2 ML NEB RESP TX SCH ×2 (07:05→21:01)
[2017-05-23] MEDS: ASPIRIN CHEW 81 MG TABLET PO SCH (09:05)
[2017-05-23] MEDS: amLODIPine 2.5 MG TABLET PO SCH (09:07)
[2017-05-23] MEDS: NEBIVOLOL 5 MG TABLET PO SCH ×2 (09:07→21:56)
[2017-05-23] MEDS: THEOPHYLLINE ER 300 MG TABLET PO SCH ×2 (09:07→19:11)
[2017-05-23] MEDS: ZINC OXIDE PASTE 113 GM TUBE TOP SCH ×2 (09:08→21:57)
[2017-05-23] MEDS: ENOXAPARIN 30 MG/0.3 ML SYRINGE SUBCUT SCH (11:28)
[2017-05-23] MEDS: LEVOFLOXACIN INJ 500 MG in PREMIX 1 EACH IV SCH (11:29)
[2017-05-23] MEDS: PANTOPRAZOLE 40 MG VIAL IV SCH ×2 (11:29→12:49)
[2017-05-23] MEDS ORDERED: TUBERCULIN SKIN TEST 0.1 ML SYRINGE INTRADERM ONE (15:35)
[2017-05-23] MEDS: ACETAMINOPHEN 325 MG TABLET PO PRN (21:56)
[2017-05-23] MEDS: MONTELUKAST 10 MG TABLET PO SCH (21:57)
[2017-05-24] MEDS: INSULIN REGULAR 100 UNIT/ML SUBCUT SCH ×4 (00:03→20:16)
[2017-05-24] MEDS: ALBUTEROL/IPRATROPIUM 3 ML NEB RESP TX SCH ×7 (00:08→23:52)
[2017-05-24] MEDS: methylPREDNISolone SOD SUC 40 MG/1 ML VIAL IV SCH (02:27)
[2017-05-24] MEDS: METOCLOPRAMIDE 10 MG/2 ML VIAL IV SCH ×4 (05:55→23:18)
[2017-05-24 06:55] LABS: Basophils % 0.1 % (0.0-0.8); Hemoglobin 12.2 GM/DL (12.0-16.0); Immature Granulocytes % 0.6 %; Immature Granulocytes Absolute 0.05 #; Lymphocytes # 0.2 10*3/uL (1.4-4.0); Lymphocytes % 2.6 % (21.3-54.2); Mean Corpuscular HGB Conc 30.5 GM/DL (32-36); Mean Corpuscular Hemoglobin 27 PG (27-34); Mean Corpuscular Volume 89.1 FL (87-102); Mean Platelet Volume 9.4 FL (9.6-12.0); Monocytes # 0.3 10*3/uL (0.11-0.8); Monocytes % 3.4 % (1.7-12.7); Neutrophils # 8.3 10*3/uL (1.4-7.4); Neutrophils % 93.3 % (38.7-73.9); Platelet Count 160 T/CUMM (130-400); Red Blood Count 4.49 MC/CUMM (3.8-5.5); Red Cell Distribution Width 17.9 % (9.3-17.3); White Blood Count 8.9 T/CUMM (4-12)
[2017-05-24 07:22] LABS: Lymphocytes 4 % (20-55); Macrocytosis 1+; Platelet Estimate Adequate; Segmented Neutrophils 96 % (50-85); Total Cells Counted 100
[2017-05-24 07:34] LABS: Albumin 2.7 G/DL (3.4-5.0); Bilirubin,Total 0.8 MG/DL (0.2-1.0); Calcium 8.6 MG/DL (8.5-10.1); Osmolality,Calculated 286.8 MOS/KG (273-304); Potassium 4.3 MMOL/L (3.5-5.1); Total Protein 5.1 G/DL (6.4-8.3)
[2017-05-24] MEDS: ARFORMOTEROL 15 MCG/2 ML NEB RESP TX SCH ×2 (07:35→19:37)
[2017-05-24] MEDS: NEBIVOLOL 5 MG TABLET PO SCH ×2 (09:09→21:33)
[2017-05-24] MEDS: amLODIPine 2.5 MG TABLET PO SCH (09:09)
[2017-05-24] MEDS: ASPIRIN CHEW 81 MG TABLET PO SCH (09:09)
[2017-05-24] MEDS: ZINC OXIDE PASTE 113 GM TUBE TOP SCH ×2 (09:09→21:33)
[2017-05-24] MEDS: THEOPHYLLINE ER 300 MG TABLET PO SCH ×2 (09:09→17:56)
[2017-05-24] MEDS: ENOXAPARIN 30 MG/0.3 ML SYRINGE SUBCUT SCH (12:00)
[2017-05-24] MEDS: predniSONE 20 MG TABLET PO SCH (12:00)
[2017-05-24] MEDS: PANTOPRAZOLE 40 MG VIAL IV SCH ×2 (12:01→12:56)
[2017-05-24] MEDS: LEVOFLOXACIN INJ 500 MG in PREMIX 1 EACH IV SCH (12:01)
[2017-05-24] MEDS: MONTELUKAST 10 MG TABLET PO SCH (21:33)
[2017-05-25] MEDS: ALBUTEROL/IPRATROPIUM 3 ML NEB RESP TX SCH ×5 (03:00→18:59)
[2017-05-25] MEDS: METOCLOPRAMIDE 10 MG/2 ML VIAL IV SCH ×3 (06:39→17:22)
[2017-05-25] MEDS: INSULIN REGULAR 100 UNIT/ML SUBCUT SCH ×4 (06:44→21:53)
[2017-05-25] MEDS: ARFORMOTEROL 15 MCG/2 ML NEB RESP TX SCH ×2 (07:53→18:59)
[2017-05-25] MEDS: THEOPHYLLINE ER 300 MG TABLET PO SCH ×2 (09:14→17:21)
[2017-05-25] MEDS: predniSONE 20 MG TABLET PO SCH (09:14)
[2017-05-25] MEDS: amLODIPine 2.5 MG TABLET PO SCH (09:14)
[2017-05-25] MEDS: NEBIVOLOL 5 MG TABLET PO SCH ×2 (09:15→21:53)
[2017-05-25] MEDS: ASPIRIN CHEW 81 MG TABLET PO SCH (09:15)
[2017-05-25] MEDS: ZINC OXIDE PASTE 113 GM TUBE TOP SCH ×2 (09:16→21:53)
[2017-05-25] MEDS: ENOXAPARIN 30 MG/0.3 ML SYRINGE SUBCUT SCH (11:18)
[2017-05-25] MEDS: PANTOPRAZOLE 40 MG VIAL IV SCH (14:20)
[2017-05-25] MEDS: MONTELUKAST 10 MG TABLET PO SCH (21:53)
[2017-05-26] MEDS: INSULIN REGULAR 100 UNIT/ML SUBCUT SCH ×4 (00:02→21:02)
[2017-05-26] MEDS: METOCLOPRAMIDE 10 MG/2 ML VIAL IV SCH ×4 (00:10→17:38)
[2017-05-26] MEDS: ALBUTEROL/IPRATROPIUM 3 ML NEB RESP TX SCH ×2 (00:14→03:41)
[2017-05-26 05:33] LABS: Albumin 2.7 G/DL (3.4-5.0); Bilirubin,Direct 0.14 MG/DL (0.0-0.20); Bilirubin,Indirect 0.9 MG/DL (0.0-1.0); Risk Ratio 2.46; Total Protein 4.9 G/DL (6.4-8.3)
[2017-05-26] MEDS: ARFORMOTEROL 15 MCG/2 ML NEB RESP TX SCH ×2 (08:06→20:15)
[2017-05-26] MEDS: ACETAMINOPHEN 325 MG TABLET PO PRN (10:38)
[2017-05-26] MEDS: THEOPHYLLINE ER 300 MG TABLET PO SCH ×2 (10:39→17:38)
[2017-05-26] MEDS: ASPIRIN CHEW 81 MG TABLET PO SCH (10:39)
[2017-05-26] MEDS: amLODIPine 2.5 MG TABLET PO SCH (10:39)
[2017-05-26] MEDS: predniSONE 20 MG TABLET PO SCH (10:40)
[2017-05-26] MEDS: NEBIVOLOL 5 MG TABLET PO SCH ×2 (10:40→21:39)
[2017-05-26] MEDS: ENOXAPARIN 30 MG/0.3 ML SYRINGE SUBCUT SCH (11:05)
[2017-05-26] MEDS: ZINC OXIDE PASTE 113 GM TUBE TOP SCH ×2 (12:01→21:39)
[2017-05-26] MEDS: PANTOPRAZOLE 40 MG VIAL IV SCH (14:12)
[2017-05-26] MEDS: ALBUTEROL 2.5 MG/3 ML NEB RESP TX PRN (15:24)
[2017-05-26] MEDS: MONTELUKAST 10 MG TABLET PO SCH (21:39)
[2017-05-26] MEDS: BISACODYL 10 MG SUPP RECTAL PRN (23:04)
[2017-05-27] MEDS: INSULIN REGULAR 100 UNIT/ML SUBCUT SCH ×4 (01:21→17:15)
[2017-05-27] MEDS: METOCLOPRAMIDE 10 MG/2 ML VIAL IV SCH ×4 (01:24→18:09)
[2017-05-27] MEDS: SODIUM PHOSPHATE ENEMA 133 ML BOTTLE RECTAL PRN (01:25)
[2017-05-27 06:08] LABS: Basophils % 0.2 % (0.0-0.8); Eosinophils % 0.2 % (0.00-10.9); Hematocrit 40.5 VOL% (35.7-47.0); Hemoglobin 12.6 GM/DL (12.0-16.0); Immature Granulocytes % 0.5 %; Immature Granulocytes Absolute 0.06 #; Lymphocytes # 0.6 10*3/uL (1.4-4.0); Lymphocytes % 4.5 % (21.3-54.2); Mean Corpuscular HGB Conc 31.1 GM/DL (32-36); Mean Corpuscular Hemoglobin 28 PG (27-34); Mean Corpuscular Volume 88.6 FL (87-102); Mean Platelet Volume 9.3 FL (9.6-12.0); Monocytes # 1.1 10*3/uL (0.11-0.8); Neutrophils # 11.5 10*3/uL (1.4-7.4); Neutrophils % 86.6 % (38.7-73.9); Platelet Count 176 T/CUMM (130-400); Red Blood Count 4.57 MC/CUMM (3.8-5.5); Red Cell Distribution Width 18.6 % (9.3-17.3); White Blood Count 13.3 T/CUMM (4-12)
[2017-05-27 06:20] LABS: Calcium 8.7 MG/DL (8.5-10.1); Magnesium 2.1 MG/DL (1.8-2.4); Osmolality,Calculated 284.1 MOS/KG (273-304); Potassium 4.3 MMOL/L (3.5-5.1)
[2017-05-27 07:32] LABS: Band Neutrophils 9 % (0-10); Hypochromasia 1+; Lymphocytes 3 % (20-55); Macrocytosis 1+; Platelet Estimate Adequate; Segmented Neutrophils 84 % (50-85); Total Cells Counted 100
[2017-05-27] MEDS: ARFORMOTEROL 15 MCG/2 ML NEB RESP TX SCH ×2 (07:38→19:57)
[2017-05-27] MEDS: predniSONE 20 MG TABLET PO SCH (08:55)
[2017-05-27] MEDS: NEBIVOLOL 5 MG TABLET PO SCH ×2 (08:55→22:00)
[2017-05-27] MEDS: THEOPHYLLINE ER 300 MG TABLET PO SCH ×2 (08:55→18:09)
[2017-05-27] MEDS: ASPIRIN CHEW 81 MG TABLET PO SCH (08:55)
[2017-05-27] MEDS: amLODIPine 2.5 MG TABLET PO SCH (08:55)
[2017-05-27] MEDS: ZINC OXIDE PASTE 113 GM TUBE TOP SCH ×2 (08:59→22:00)
[2017-05-27] MEDS: ENOXAPARIN 30 MG/0.3 ML SYRINGE SUBCUT SCH (12:17)
[2017-05-27] MEDS: BISACODYL 10 MG SUPP RECTAL PRN (12:17)
[2017-05-27] MEDS: PANTOPRAZOLE 40 MG VIAL IV SCH (14:20)
[2017-05-27] MEDS: MONTELUKAST 10 MG TABLET PO SCH (22:00)
[2017-05-28] MEDS: INSULIN REGULAR 100 UNIT/ML SUBCUT SCH ×2 (01:45→05:09)
[2017-05-28] MEDS: METOCLOPRAMIDE 10 MG/2 ML VIAL IV SCH ×2 (01:46→06:34)
[2017-05-28] MEDS: ARFORMOTEROL 15 MCG/2 ML NEB RESP TX SCH (07:02)
[2017-05-28 08:30] VITALS: BP 115/52
[2017-05-28] MEDS: ASPIRIN CHEW 81 MG TABLET PO SCH (08:45)
[2017-05-28] MEDS: THEOPHYLLINE ER 300 MG TABLET PO SCH (08:45)
[2017-05-28] MEDS: NEBIVOLOL 5 MG TABLET PO SCH (08:45)
[2017-05-28] MEDS: predniSONE 20 MG TABLET PO SCH (08:45)
[2017-05-28] MEDS: amLODIPine 2.5 MG TABLET PO SCH (08:45)
[2017-05-28] MEDS: ZINC OXIDE PASTE 113 GM TUBE TOP SCH (08:45)
== END 2017-05-28 11:45 | DRG 207 ==
LOC: N.CC 12:47 → SUPCPDRO 12:47 → SUATTDRO 12:47 → N.TELES 05-19 17:13
PROVIDERS: ADMIT Internal Medicine

== ENCOUNTER 2018-06-16 14:03 | Inpatient (IN) ==
[2018-06-16] MEDS ORDERED: cefTRIAXone 1,000 MG in SODIUM CHLORIDE 0.9% 100 ML IV STA (14:34)
[2018-06-16] MEDS ORDERED: methylPREDNISolone SOD SUC 125 MG/2 ML VIAL IV STA (14:34)
[2018-06-16] MEDS ORDERED: ALBUTEROL/IPRATROPIUM 3 ML NEB RESP TX STA (14:34)
[2018-06-16] MEDS ORDERED: LEVOFLOXACIN INJ 500 MG in PREMIX 1 EACH IV STA (14:34)
[2018-06-16 15:07] LABS: Basophils % 0.3 % (0.0-0.8); Hemoglobin 13.2 GM/DL (12.0-16.0); Immature Granulocytes % 0.3 %; Immature Granulocytes Absolute 0.03 #; Lymphocytes # 0.4 10*3/uL (1.4-4.0); Lymphocytes % 3.1 % (21.3-54.2); Mean Corpuscular HGB Conc 32.2 GM/DL (32-36); Mean Corpuscular Hemoglobin 31 PG (27-34); Mean Corpuscular Volume 96.7 FL (87-102); Mean Platelet Volume 9.6 FL (9.6-12.0); Monocytes # 1.1 10*3/uL (0.11-0.8); Neutrophils # 9.9 10*3/uL (1.4-7.4); Neutrophils % 86.3 % (38.7-73.9); Platelet Count 185 T/CUMM (130-400); Red Blood Count 4.24 MC/CUMM (3.8-5.5); Red Cell Distribution Width 13.2 % (9.3-17.3); White Blood Count 11.4 T/CUMM (4-12)
[2018-06-16 15:29] LABS: Band Neutrophils 6 % (0-10); Lymphocytes 2 % (20-55); Segmented Neutrophils 82 % (50-85); Total Cells Counted 100
[2018-06-16 15:30] LABS: Platelet Estimate Adequate
[2018-06-16 15:40] LABS: Bilirubin,Total 0.9 MG/DL (0.2-1.0); Calcium 8.6 MG/DL (8.5-10.1); Potassium 3.5 MMOL/L (3.5-5.1); Total Protein 7.3 G/DL (6.4-8.3)
[2018-06-16] MEDS ORDERED: DEXTROSE 50% 25 GM/50 ML VIAL IV PRN (16:09)
[2018-06-16] MEDS ORDERED: GLUCAGON 1 MG VIAL IM PRN (16:09)
[2018-06-16] MEDS ORDERED: ALBUTEROL 2.5 MG/3 ML NEB RESP TX PRN (16:09)
[2018-06-16] MEDS ORDERED: ACETAMINOPHEN 500 MG TABLET PO PRN (16:15)
[2018-06-16] MEDS ORDERED: ONDANSETRON 4 MG TABLET PO PRN (16:15)
[2018-06-16] MEDS: INSULIN REGULAR 100 UNIT/ML SUBCUT SCH ×2 (18:24→22:03)
[2018-06-16] MEDS: ENOXAPARIN 40 MG/0.4 ML SYRINGE SUBCUT SCH (18:38)
[2018-06-16] MEDS: ALBUTEROL/IPRATROPIUM 3 ML NEB RESP TX SCH (19:56)
[2018-06-16] MEDS: ARFORMOTEROL 15 MCG/2 ML NEB RESP TX SCH (19:56)
[2018-06-16] MEDS: methylPREDNISolone SOD SUC 40 MG/1 ML VIAL IV SCH (21:56)
[2018-06-16] MEDS: MONTELUKAST 10 MG TABLET PO SCH (22:01)
[2018-06-16] MEDS: NEBIVOLOL 5 MG TABLET PO SCH (22:01)
[2018-06-16] MEDS: MOMETASONE 220 MCG/PUFF INHALER 14 DOSE INH SCH (22:02)
[2018-06-16] MEDS: ALPRAZolam 0.5 MG TABLET PO SCH (22:02)
[2018-06-17] MEDS: ALBUTEROL/IPRATROPIUM 3 ML NEB RESP TX SCH ×4 (00:24→19:29)
[2018-06-17] MEDS: methylPREDNISolone SOD SUC 40 MG/1 ML VIAL IV SCH ×2 (04:41→16:45)
[2018-06-17 05:26] LABS: Basophils % 0.1 % (0.0-0.8); Hematocrit 37.5 VOL% (35.7-47.0); Hemoglobin 12.2 GM/DL (12.0-16.0); Immature Granulocytes % 0.1 %; Immature Granulocytes Absolute 0.01 #; Lymphocytes # 0.2 10*3/uL (1.4-4.0); Lymphocytes % 2.6 % (21.3-54.2); Mean Corpuscular HGB Conc 32.5 GM/DL (32-36); Mean Corpuscular Hemoglobin 31 PG (27-34); Mean Corpuscular Volume 95.2 FL (87-102); Mean Platelet Volume 9.9 FL (9.6-12.0); Monocytes # 0.2 10*3/uL (0.11-0.8); Monocytes % 3.5 % (1.7-12.7); Neutrophils # 6.4 10*3/uL (1.4-7.4); Neutrophils % 93.7 % (38.7-73.9); Platelet Count 160 T/CUMM (130-400); Red Blood Count 3.94 MC/CUMM (3.8-5.5); Red Cell Distribution Width 12.5 % (9.3-17.3); White Blood Count 6.8 T/CUMM (4-12)
[2018-06-17 05:53] LABS: Apearance,Urine Slightly Hazy (Clear); Bacteria,Urine Many /HPF (Few); Bilirubin,Urine Negative (Negative); Blood, Urine Small mg/dL (Negative); Glucose,Urine (UA) Negative (Negative); Ketones,Urine 5 mg/dL (Negative); Mucus,Urine Many /LPF (Occasional); Nitrite,Urine Negative (Negative); Protein,Urine 30 MG/DL; RBC,Urine 4 /HPF (0-4); Urine Color Yellow (Yellow); Urine Specific Gravity 1.018 (1.001-1.035); Urine Urobilinogen < 2.0 EU/DL (0.2-1.0); WBC,Urine 1 /HPF (0-6)
[2018-06-17 06:02] LABS: Albumin 2.7 G/DL (3.4-5.0); Bilirubin,Total 0.5 MG/DL (0.2-1.0); Calcium 9.1 MG/DL (8.5-10.1); Osmolality,Calculated 277.8 MOS/KG (273-304); Potassium 3.4 MMOL/L (3.5-5.1); Total Protein 6.9 G/DL (6.4-8.3)
[2018-06-17 06:09] LABS: Lymphocytes 2 % (20-55); Platelet Estimate Decreased; Polychromasia Few; Segmented Neutrophils 96 % (50-85); Total Cells Counted 100
[2018-06-17] MEDS: ARFORMOTEROL 15 MCG/2 ML NEB RESP TX SCH ×2 (07:40→20:56)
[2018-06-17] MEDS: FUROSEMIDE 20 MG TABLET PO SCH (10:10)
[2018-06-17] MEDS: ALPRAZolam 0.5 MG TABLET PO SCH ×2 (10:10→21:46)
[2018-06-17] MEDS: THEOPHYLLINE ER (24 HR) 400 MG TABLET PO SCH (10:11)
[2018-06-17] MEDS: amLODIPine 2.5 MG TABLET PO SCH (10:11)
[2018-06-17] MEDS: MULTIVITAMIN (CENTRUM) TABLET PO SCH (10:11)
[2018-06-17] MEDS: FAMOTIDINE 20 MG TABLET PO SCH (10:11)
[2018-06-17] MEDS: FERROUS SULFATE 325 MG TABLET PO SCH (10:11)
[2018-06-17] MEDS: CETIRIZINE 10 MG TABLET PO SCH (10:12)
[2018-06-17] MEDS: POTASSIUM CHLORIDE 10 MEQ TABLET PO SCH (10:12)
[2018-06-17] MEDS: PANTOPRAZOLE 40 MG TABLET PO SCH (10:12)
[2018-06-17] MEDS: POLYETHYLENE GLYCOL POWDER 17 GM PACK PO SCH (10:12)
[2018-06-17] MEDS: NEBIVOLOL 5 MG TABLET PO SCH ×2 (10:12→21:46)
[2018-06-17] MEDS: INSULIN REGULAR 100 UNIT/ML SUBCUT SCH ×4 (10:12→21:44)
[2018-06-17] MEDS: ASCORBIC ACID 500 MG TABLET PO SCH (10:12)
[2018-06-17] MEDS: MOMETASONE 220 MCG/PUFF INHALER 14 DOSE INH SCH ×2 (10:13→21:47)
[2018-06-17] MEDS: FLUTICASONE 50 MCG NASAL SPRAY 16 GM BOTTLE BOTH NARES SCH (10:14)
[2018-06-17] MEDS: LEVOFLOXACIN INJ 750 MG in PREMIX 1 EACH IV SCH (16:44)
[2018-06-17] MEDS: ENOXAPARIN 40 MG/0.4 ML SYRINGE SUBCUT SCH (16:44)
[2018-06-17] MEDS: MONTELUKAST 10 MG TABLET PO SCH (21:47)
[2018-06-17] MEDS: POTASSIUM CHLORIDE 20 MEQ TABLET PO PRN (21:47)
[2018-06-18] MEDS: POTASSIUM CHLORIDE 20 MEQ TABLET PO PRN ×2 (00:33→03:55)
[2018-06-18] MEDS: ALBUTEROL/IPRATROPIUM 3 ML NEB RESP TX SCH ×4 (00:40→18:30)
[2018-06-18] MEDS: methylPREDNISolone SOD SUC 40 MG/1 ML VIAL IV SCH ×2 (03:57→20:47)
[2018-06-18] MEDS: ARFORMOTEROL 15 MCG/2 ML NEB RESP TX SCH ×2 (07:50→18:30)
[2018-06-18 09:40] LABS: Basophils % 0.1 % (0.0-0.8); Hematocrit 38.7 VOL% (35.7-47.0); Hemoglobin 12.4 GM/DL (12.0-16.0); Immature Granulocytes % 0.5 %; Immature Granulocytes Absolute 0.04 #; Lymphocytes # 0.2 10*3/uL (1.4-4.0); Lymphocytes % 2.6 % (21.3-54.2); Mean Corpuscular Hemoglobin 31 PG (27-34); Mean Platelet Volume 9.7 FL (9.6-12.0); Monocytes # 0.3 10*3/uL (0.11-0.8); Neutrophils # 8.2 10*3/uL (1.4-7.4); Neutrophils % 93.8 % (38.7-73.9); Platelet Count 209 T/CUMM (130-400); Red Blood Count 4.03 MC/CUMM (3.8-5.5); Red Cell Distribution Width 12.5 % (9.3-17.3); White Blood Count 8.8 T/CUMM (4-12)
[2018-06-18 10:03] LABS: Band Neutrophils 17 % (0-10); Segmented Neutrophils 83 % (50-85); Total Cells Counted 100
[2018-06-18 10:04] LABS: Anisocytosis Slight; Platelet Estimate Normal
[2018-06-18 10:06] LABS: Calcium 9.2 MG/DL (8.5-10.1); Osmolality,Calculated 281.8 MOS/KG (273-304); Potassium 4.6 MMOL/L (3.5-5.1)
[2018-06-18] MEDS: CETIRIZINE 10 MG TABLET PO SCH (11:08)
[2018-06-18] MEDS: FUROSEMIDE 20 MG TABLET PO SCH (11:08)
[2018-06-18] MEDS: FAMOTIDINE 20 MG TABLET PO SCH (11:08)
[2018-06-18] MEDS: THEOPHYLLINE ER (24 HR) 400 MG TABLET PO SCH (11:09)
[2018-06-18] MEDS: FERROUS SULFATE 325 MG TABLET PO SCH (11:10)
[2018-06-18] MEDS: POTASSIUM CHLORIDE 10 MEQ TABLET PO SCH (11:10)
[2018-06-18] MEDS: MULTIVITAMIN (CENTRUM) TABLET PO SCH (11:10)
[2018-06-18] MEDS: ASCORBIC ACID 500 MG TABLET PO SCH (11:10)
[2018-06-18] MEDS: POLYETHYLENE GLYCOL POWDER 17 GM PACK PO SCH (11:11)
[2018-06-18] MEDS: amLODIPine 2.5 MG TABLET PO SCH (11:11)
[2018-06-18] MEDS: PANTOPRAZOLE 40 MG TABLET PO SCH (11:11)
[2018-06-18] MEDS: ALPRAZolam 0.5 MG TABLET PO SCH ×2 (11:11→22:41)
[2018-06-18] MEDS: INSULIN REGULAR 100 UNIT/ML SUBCUT SCH ×3 (11:12→22:41)
[2018-06-18] MEDS: NEBIVOLOL 5 MG TABLET PO SCH ×2 (11:15→22:41)
[2018-06-18] MEDS: FLUTICASONE 50 MCG NASAL SPRAY 16 GM BOTTLE BOTH NARES SCH (20:45)
[2018-06-18] MEDS: MOMETASONE 220 MCG/PUFF INHALER 14 DOSE INH SCH ×2 (20:45→22:41)
[2018-06-18] MEDS: ENOXAPARIN 40 MG/0.4 ML SYRINGE SUBCUT SCH (20:48)
[2018-06-18] MEDS: MONTELUKAST 10 MG TABLET PO SCH (22:42)
[2018-06-18] MEDS: LEVOFLOXACIN INJ 750 MG in PREMIX 1 EACH IV SCH (22:56)
[2018-06-19] MEDS: ALBUTEROL/IPRATROPIUM 3 ML NEB RESP TX SCH ×4 (00:30→19:48)
[2018-06-19] MEDS: methylPREDNISolone SOD SUC 40 MG/1 ML VIAL IV SCH ×2 (03:26→18:05)
[2018-06-19 06:04] LABS: Basophils % 0.1 % (0.0-0.8); Eosinophils % 0.1 % (0.00-10.9); Hematocrit 35.1 VOL% (35.7-47.0); Hemoglobin 11.1 GM/DL (12.0-16.0); Immature Granulocytes % 0.9 %; Immature Granulocytes Absolute 0.06 #; Lymphocytes # 0.4 10*3/uL (1.4-4.0); Lymphocytes % 5.6 % (21.3-54.2); Mean Corpuscular HGB Conc 31.6 GM/DL (32-36); Mean Corpuscular Hemoglobin 31 PG (27-34); Mean Platelet Volume 9.6 FL (9.6-12.0); Monocytes # 0.7 10*3/uL (0.11-0.8); Monocytes % 10.6 % (1.7-12.7); Neutrophils # 5.7 10*3/uL (1.4-7.4); Neutrophils % 82.7 % (38.7-73.9); Platelet Count 182 T/CUMM (130-400); Red Blood Count 3.58 MC/CUMM (3.8-5.5); Red Cell Distribution Width 12.9 % (9.3-17.3); White Blood Count 6.9 T/CUMM (4-12)
[2018-06-19 06:13] LABS: Calcium 8.7 MG/DL (8.5-10.1); Osmolality,Calculated 283.3 MOS/KG (273-304); Potassium 3.6 MMOL/L (3.5-5.1)
[2018-06-19] MEDS: ARFORMOTEROL 15 MCG/2 ML NEB RESP TX SCH ×2 (07:28→19:48)
[2018-06-19] MEDS: INSULIN REGULAR 100 UNIT/ML SUBCUT SCH ×4 (07:54→21:41)
[2018-06-19] MEDS: MULTIVITAMIN (CENTRUM) TABLET PO SCH (08:57)
[2018-06-19] MEDS: ASCORBIC ACID 500 MG TABLET PO SCH (08:58)
[2018-06-19] MEDS: FERROUS SULFATE 325 MG TABLET PO SCH (08:58)
[2018-06-19] MEDS: THEOPHYLLINE ER (24 HR) 400 MG TABLET PO SCH (08:58)
[2018-06-19] MEDS: PANTOPRAZOLE 40 MG TABLET PO SCH (08:58)
[2018-06-19] MEDS: POTASSIUM CHLORIDE 10 MEQ TABLET PO SCH (08:58)
[2018-06-19] MEDS: FAMOTIDINE 20 MG TABLET PO SCH (08:58)
[2018-06-19] MEDS: ALPRAZolam 0.5 MG TABLET PO SCH ×2 (08:58→20:26)
[2018-06-19] MEDS: FUROSEMIDE 20 MG TABLET PO SCH (08:58)
[2018-06-19] MEDS: NEBIVOLOL 5 MG TABLET PO SCH ×2 (08:58→20:26)
[2018-06-19] MEDS: CETIRIZINE 10 MG TABLET PO SCH (08:59)
[2018-06-19] MEDS: FLUTICASONE 50 MCG NASAL SPRAY 16 GM BOTTLE BOTH NARES SCH (08:59)
[2018-06-19] MEDS: MOMETASONE 220 MCG/PUFF INHALER 14 DOSE INH SCH ×2 (08:59→20:26)
[2018-06-19] MEDS: amLODIPine 2.5 MG TABLET PO SCH (08:59)
[2018-06-19] MEDS: POLYETHYLENE GLYCOL POWDER 17 GM PACK PO SCH (12:15)
[2018-06-19] MEDS: ENOXAPARIN 40 MG/0.4 ML SYRINGE SUBCUT SCH (18:04)
[2018-06-19] MEDS: LEVOFLOXACIN INJ 750 MG in PREMIX 1 EACH IV SCH (18:05)
[2018-06-19] MEDS: MONTELUKAST 10 MG TABLET PO SCH (20:26)
[2018-06-20] MEDS: ALBUTEROL/IPRATROPIUM 3 ML NEB RESP TX SCH ×4 (00:01→20:30)
[2018-06-20] MEDS: methylPREDNISolone SOD SUC 40 MG/1 ML VIAL IV SCH (04:31)
[2018-06-20] MEDS: ARFORMOTEROL 15 MCG/2 ML NEB RESP TX SCH ×2 (07:35→20:30)
[2018-06-20] MEDS: INSULIN REGULAR 100 UNIT/ML SUBCUT SCH ×4 (07:57→23:02)
[2018-06-20] MEDS: FERROUS SULFATE 325 MG TABLET PO SCH ×2 (08:55→09:14)
[2018-06-20] MEDS: MULTIVITAMIN (CENTRUM) TABLET PO SCH ×2 (08:55→09:14)
[2018-06-20] MEDS: POTASSIUM CHLORIDE 10 MEQ TABLET PO SCH (08:55)
[2018-06-20] MEDS: ASCORBIC ACID 500 MG TABLET PO SCH (08:55)
[2018-06-20] MEDS: NEBIVOLOL 5 MG TABLET PO SCH ×2 (08:55→21:07)
[2018-06-20] MEDS: FAMOTIDINE 20 MG TABLET PO SCH (08:55)
[2018-06-20] MEDS: FUROSEMIDE 20 MG TABLET PO SCH (08:55)
[2018-06-20] MEDS: POLYETHYLENE GLYCOL POWDER 17 GM PACK PO SCH (08:55)
[2018-06-20] MEDS: ALPRAZolam 0.5 MG TABLET PO SCH ×2 (08:55→21:07)
[2018-06-20] MEDS: THEOPHYLLINE ER (24 HR) 400 MG TABLET PO SCH (08:55)
[2018-06-20] MEDS: PANTOPRAZOLE 40 MG TABLET PO SCH (08:55)
[2018-06-20] MEDS: FLUTICASONE 50 MCG NASAL SPRAY 16 GM BOTTLE BOTH NARES SCH ×2 (08:56→09:12)
[2018-06-20] MEDS: amLODIPine 2.5 MG TABLET PO SCH (08:56)
[2018-06-20] MEDS: CETIRIZINE 10 MG TABLET PO SCH ×2 (08:56→09:14)
[2018-06-20] MEDS: MOMETASONE 220 MCG/PUFF INHALER 14 DOSE INH SCH ×3 (08:56→21:08)
[2018-06-20] MEDS ORDERED: LEVOFLOXACIN 500 MG TABLET PO SCH (12:00)
[2018-06-20] MEDS: ENOXAPARIN 40 MG/0.4 ML SYRINGE SUBCUT SCH (16:37)
[2018-06-20] MEDS: MONTELUKAST 10 MG TABLET PO SCH (21:07)
[2018-06-21] MEDS: ALBUTEROL/IPRATROPIUM 3 ML NEB RESP TX SCH ×2 (01:44→07:38)
[2018-06-21 05:13] LABS: Basophils % 0.3 % (0.0-0.8); Eosinophils # 0.1 10*3/uL (0.0-0.87); Eosinophils % 0.6 % (0.00-10.9); Hematocrit 38.5 VOL% (35.7-47.0); Immature Granulocytes % 0.6 %; Immature Granulocytes Absolute 0.05 #; Lymphocytes # 0.7 10*3/uL (1.4-4.0); Lymphocytes % 8.5 % (21.3-54.2); Mean Corpuscular HGB Conc 31.2 GM/DL (32-36); Mean Corpuscular Hemoglobin 30 PG (27-34); Mean Platelet Volume 9.2 FL (9.6-12.0); Monocytes # 0.7 10*3/uL (0.11-0.8); Monocytes % 9.1 % (1.7-12.7); Neutrophils # 6.5 10*3/uL (1.4-7.4); Neutrophils % 80.9 % (38.7-73.9); Platelet Count 197 T/CUMM (130-400); Red Blood Count 3.97 MC/CUMM (3.8-5.5); Red Cell Distribution Width 12.5 % (9.3-17.3)
[2018-06-21 05:28] LABS: Calcium 8.3 MG/DL (8.5-10.1); Osmolality,Calculated 279.5 MOS/KG (273-304); Potassium 3.1 MMOL/L (3.5-5.1)
[2018-06-21] MEDS: ARFORMOTEROL 15 MCG/2 ML NEB RESP TX SCH (07:45)
[2018-06-21] MEDS: POTASSIUM CHLORIDE 20 MEQ TABLET PO PRN (08:19)
[2018-06-21] MEDS: PANTOPRAZOLE 40 MG TABLET PO SCH (08:19)
[2018-06-21] MEDS: ALPRAZolam 0.5 MG TABLET PO SCH (08:19)
[2018-06-21] MEDS: THEOPHYLLINE ER (24 HR) 400 MG TABLET PO SCH (08:19)
[2018-06-21] MEDS: POLYETHYLENE GLYCOL POWDER 17 GM PACK PO SCH (08:20)
[2018-06-21] MEDS: MOMETASONE 220 MCG/PUFF INHALER 14 DOSE INH SCH (08:20)
[2018-06-21] MEDS: FLUTICASONE 50 MCG NASAL SPRAY 16 GM BOTTLE BOTH NARES SCH (08:20)
[2018-06-21] MEDS: amLODIPine 2.5 MG TABLET PO SCH (08:21)
[2018-06-21] MEDS: NEBIVOLOL 5 MG TABLET PO SCH (08:21)
[2018-06-21] MEDS: INSULIN REGULAR 100 UNIT/ML SUBCUT SCH ×2 (08:21→13:02)
[2018-06-21] MEDS ORDERED: predniSONE 20 MG TABLET PO SCH (09:00)
[2018-06-21 10:31] VITALS: BP 96/46
== END 2018-06-21 12:30 | DRG 194 ==
LOC: EDBD → EDUNIT# → N.ED 14:03 → N.EDINP 16:09 → SUATTDRO 16:09 → N.5E 16:54
PROVIDERS: ADMIT Internal Medicine; ATTEND Internal Medicine

== ENCOUNTER 2019-07-03 13:56 | Inpatient (IN) ==
[2019-07-03] MEDS ORDERED: SODIUM CHLORIDE 0.9% 1,000 ML IV STA (14:59)
[2019-07-03 16:21] LABS: Albumin 3.2 G/DL (3.4-5.0); Bilirubin,Total 0.6 MG/DL (0.2-1.0); Calcium 8.4 MG/DL (8.5-10.1); Osmolality,Calculated 281.1 MOS/KG (273-304); Total Protein 6.3 G/DL (6.4-8.3)
[2019-07-03 16:47] LABS: Apearance,Urine Slightly Hazy (Clear); Bacteria,Urine Many /HPF (Few); Blood, Urine Small mg/dL (Negative); Glucose,Urine (UA) Negative (Negative); Hyaline Casts,Urine 1 /LPF (0-3); Ketones,Urine Negative (Negative); Mucus,Urine Occasional /LPF (Occasional); Nitrite,Urine Positive (Negative); Protein,Urine Negative; Urine Specific Gravity 1.019 (1.001-1.035); WBC,Urine 5 /HPF (0-6)
[2019-07-03 16:48] LABS: Bilirubin,Urine Small mg/dL (Negative); Urine Color Dark Yellow (Yellow)
[2019-07-03] MEDS ORDERED: cefTRIAXone 1,000 MG in SODIUM CHLORIDE 0.9% 100 ML IV STA (17:17)
[2019-07-03 17:55] LABS: Basophils % 0.6 % (0.0-0.8); Eosinophils # 0.2 10*3/uL (0.0-0.87); Eosinophils % 3.7 % (0.00-10.9); Hematocrit 43.7 VOL% (35.7-47.0); Hemoglobin 13.4 GM/DL (12.0-16.0); Immature Granulocytes % 0.2 %; Immature Granulocytes Absolute 0.01 #; Mean Corpuscular HGB Conc 30.7 GM/DL (32-36); Mean Corpuscular Volume 101.9 FL (87-102); Mean Platelet Volume 9.7 FL (9.6-12.0); Monocytes % 13.8 % (1.7-12.7); Neutrophils % 61.7 % (38.7-73.9); Platelet Count 112 T/CUMM (130-400); Red Blood Count 4.29 MC/CUMM (3.8-5.5); Red Cell Distribution Width 13.8 % (9.3-17.3); White Blood Count 5.2 T/CUMM (4-12)
[2019-07-03 19:21] LABS: Anisocytosis 1+; Macrocytosis 1+; Platelet Estimate Decreased; Poikilocytosis 1+
[2019-07-03 19:22] LABS: Ovalocytes 1+; Polychromasia Slight
[2019-07-04] MEDS: ARFORMOTEROL 15 MCG/2 ML NEB RESP TX SCH ×3 (07:18→21:19)
[2019-07-04 07:53] LABS: Osmolality,Calculated 280.1 MOS/KG (273-304)
[2019-07-04 08:05] LABS: Basophils % 0.8 % (0.0-0.8); Eosinophils # 0.2 10*3/uL (0.0-0.87); Hematocrit 42.5 VOL% (35.7-47.0); Immature Granulocytes % 0.2 %; Immature Granulocytes Absolute 0.01 #; Lymphocytes # 0.9 10*3/uL (1.4-4.0); Lymphocytes % 16.9 % (21.3-54.2); Mean Corpuscular HGB Conc 31.1 GM/DL (32-36); Mean Corpuscular Volume 101.2 FL (87-102); Mean Platelet Volume 9.8 FL (9.6-12.0); Monocytes % 9.2 % (1.7-12.7); Neutrophils % 69.9 % (38.7-73.9); Platelet Count 127 T/CUMM (130-400); Red Cell Distribution Width 13.7 % (9.3-17.3); White Blood Count 5.3 T/CUMM (4-12)
[2019-07-04 08:07] LABS: Hemoglobin 13.2 GM/DL (12.0-16.0)
[2019-07-04] MEDS ORDERED: FUROSEMIDE 20 MG TABLET PO SCH (09:00)
[2019-07-04] MEDS: THEOPHYLLINE ER (24 HR) 400 MG TABLET PO SCH (09:02)
[2019-07-04] MEDS: ASCORBIC ACID 500 MG TABLET PO SCH (09:02)
[2019-07-04] MEDS: NEBIVOLOL 5 MG TABLET PO SCH (09:02)
[2019-07-04] MEDS: ENOXAPARIN 30 MG/0.3 ML SYRINGE SUBCUT SCH (09:02)
[2019-07-04] MEDS ORDERED: cefTRIAXone 1,000 MG in SYRINGE 1 EACH IV SCH (18:00)
[2019-07-05 06:20] LABS: Basophils % 0.7 % (0.0-0.8); Eosinophils # 0.2 10*3/uL (0.0-0.87); Eosinophils % 3.9 % (0.00-10.9); Hematocrit 38.5 VOL% (35.7-47.0); Hemoglobin 12.1 GM/DL (12.0-16.0); Immature Granulocytes % 0.5 %; Immature Granulocytes Absolute 0.02 #; Lymphocytes # 0.8 10*3/uL (1.4-4.0); Lymphocytes % 20.2 % (21.3-54.2); Mean Corpuscular HGB Conc 31.4 GM/DL (32-36); Mean Corpuscular Volume 98.7 FL (87-102); Monocytes % 12.4 % (1.7-12.7); Neutrophils % 62.3 % (38.7-73.9); Platelet Count 110 T/CUMM (130-400); Red Cell Distribution Width 13.3 % (9.3-17.3); White Blood Count 4.1 T/CUMM (4-12)
[2019-07-05 06:43] LABS: Calcium 8.3 MG/DL (8.5-10.1); Osmolality,Calculated 277.4 MOS/KG (273-304)
[2019-07-05] MEDS: ARFORMOTEROL 15 MCG/2 ML NEB RESP TX SCH ×2 (08:12→20:17)
[2019-07-05] MEDS: ENOXAPARIN 30 MG/0.3 ML SYRINGE SUBCUT SCH (09:46)
[2019-07-05] MEDS: ASCORBIC ACID 500 MG TABLET PO SCH (09:48)
[2019-07-05] MEDS: NEBIVOLOL 5 MG TABLET PO SCH (09:48)
[2019-07-05] MEDS: THEOPHYLLINE ER (24 HR) 400 MG TABLET PO SCH (09:48)
[2019-07-05] MEDS: ERTAPENEM 1,000 MG in SODIUM CHLORIDE 0.9% 100 ML IV SCH (17:33)
[2019-07-06] MEDS: ARFORMOTEROL 15 MCG/2 ML NEB RESP TX SCH ×2 (08:32→20:38)
[2019-07-06] MEDS: THEOPHYLLINE ER (24 HR) 400 MG TABLET PO SCH (09:38)
[2019-07-06] MEDS: ENOXAPARIN 30 MG/0.3 ML SYRINGE SUBCUT SCH (09:38)
[2019-07-06] MEDS: ASCORBIC ACID 500 MG TABLET PO SCH (09:39)
[2019-07-06] MEDS: NEBIVOLOL 5 MG TABLET PO SCH (09:39)
[2019-07-06] MEDS: ERTAPENEM 1,000 MG in SODIUM CHLORIDE 0.9% 100 ML IV SCH (17:25)
[2019-07-07] MEDS: ARFORMOTEROL 15 MCG/2 ML NEB RESP TX SCH ×2 (08:23→19:54)
[2019-07-07] MEDS: ASCORBIC ACID 500 MG TABLET PO SCH (09:28)
[2019-07-07] MEDS: THEOPHYLLINE ER (24 HR) 400 MG TABLET PO SCH (09:28)
[2019-07-07] MEDS: NEBIVOLOL 5 MG TABLET PO SCH (09:29)
[2019-07-07] MEDS: ENOXAPARIN 30 MG/0.3 ML SYRINGE SUBCUT SCH (09:29)
[2019-07-07] MEDS: GENTAMICIN INJ 180 MG in SODIUM CHLORIDE 0.9% 100 ML IV SCH (11:12)
[2019-07-08] MEDS: ARFORMOTEROL 15 MCG/2 ML NEB RESP TX SCH ×2 (07:24→19:52)
[2019-07-08] MEDS: ENOXAPARIN 30 MG/0.3 ML SYRINGE SUBCUT SCH (10:41)
[2019-07-08] MEDS: THEOPHYLLINE ER (24 HR) 400 MG TABLET PO SCH (10:41)
[2019-07-08] MEDS: ASCORBIC ACID 500 MG TABLET PO SCH (10:41)
[2019-07-08] MEDS: NEBIVOLOL 5 MG TABLET PO SCH (10:41)
[2019-07-08] MEDS: GENTAMICIN INJ 180 MG in SODIUM CHLORIDE 0.9% 100 ML IV SCH (10:49)
[2019-07-08] MEDS: ALBUTEROL/IPRATROPIUM 3 ML NEB RESP TX SCH ×3 (12:00→19:52)
[2019-07-08] MEDS: DEXTROSE 5% 1,000 ML IV SCH (13:30)
[2019-07-08] MEDS: cefTRIAXone 1,000 MG in SYRINGE 1 EACH IV SCH (13:33)
[2019-07-08 17:34] LABS: Folate 11.9 NG/ML (5.4-24.0)
[2019-07-08 17:37] LABS: Folate 12.7 NG/ML (5.4-24.0)
[2019-07-08] MEDS: ALPRAZolam 0.5 MG TABLET PO SCH (21:29)
[2019-07-09] MEDS: ALBUTEROL/IPRATROPIUM 3 ML NEB RESP TX SCH ×4 (00:39→10:47)
[2019-07-09] MEDS: DEXTROSE 5% 1,000 ML IV SCH ×2 (02:21→14:50)
[2019-07-09] MEDS: ARFORMOTEROL 15 MCG/2 ML NEB RESP TX SCH (07:01)
[2019-07-09] MEDS ORDERED: GENTAMICIN INJ 180 MG in SODIUM CHLORIDE 0.9% 100 ML IV SCH (09:00)
[2019-07-09] MEDS ORDERED: ALPRAZolam 0.5 MG TABLET PO SCH (09:32)
[2019-07-09] MEDS: NEBIVOLOL 5 MG TABLET PO SCH (09:43)
[2019-07-09] MEDS: ASCORBIC ACID 500 MG TABLET PO SCH (09:44)
[2019-07-09] MEDS: ENOXAPARIN 30 MG/0.3 ML SYRINGE SUBCUT SCH (09:44)
[2019-07-09] MEDS: THEOPHYLLINE ER (24 HR) 400 MG TABLET PO SCH (09:44)
[2019-07-09] MEDS: ALPRAZolam 0.5 MG TABLET PO SCH (10:50)
[2019-07-09] MEDS: cefTRIAXone 1,000 MG in SYRINGE 1 EACH IV SCH (12:20)
[2019-07-09 12:33] VITALS: BP 93/52
[2019-07-09] MEDS ORDERED: ALPRAZolam 0.25 MG TABLET PO SCH (21:00)
== END 2019-07-09 14:44 | DRG 91 ==
LOC: EDBD → EDUNIT# → N.ED 13:56 → N.EDINP 13:56 → SUATTDRO 18:34 → N.EDINP 19:14 → N.TELEN 19:32
PROVIDERS: ADMIT Internal Medicine; ATTEND Internal Medicine

== ENCOUNTER 2019-10-01 02:06 | Inpatient (IN) ==
[2019-10-01] MEDS ORDERED: ALBUTEROL/IPRATROPIUM 3 ML NEB RESP TX STA (02:19)
[2019-10-01] MEDS ORDERED: SODIUM CHLORIDE 0.9% 500 ML IV STA (02:19)
[2019-10-01] MEDS ORDERED: methylPREDNISolone SOD SUC 125 MG/2 ML VIAL IV STA (02:19)
[2019-10-01 02:33] LABS: Basophils # 0.1 10*3/uL (0.0-0.2); Eosinophils # 0.1 10*3/uL (0.0-0.87); Eosinophils % 0.8 % (0.00-10.9); Hematocrit 45.3 VOL% (35.7-47.0); Hemoglobin 14.3 GM/DL (12.0-16.0); Immature Granulocytes % 0.3 %; Immature Granulocytes Absolute 0.02 #; Lymphocytes # 0.9 10*3/uL (1.4-4.0); Lymphocytes % 11.7 % (21.3-54.2); Mean Corpuscular HGB Conc 31.6 GM/DL (32-36); Mean Corpuscular Volume 101.3 FL (87-102); Mean Platelet Volume 9.5 FL (9.6-12.0); Monocytes % 7.6 % (1.7-12.7); Neutrophils % 78.6 % (38.7-73.9); Platelet Count 178 T/CUMM (130-400); Red Blood Count 4.47 MC/CUMM (3.8-5.5); Red Cell Distribution Width 12.7 % (9.3-17.3); White Blood Count 7.3 T/CUMM (4-12)
[2019-10-01 02:40] LABS: PT Patient Result 10.8 SECS (9.8-11.9)
[2019-10-01] MEDS ORDERED: LEVOFLOXACIN INJ 500 MG in PREMIX 1 EACH IV STA (02:54)
[2019-10-01 03:00] LABS: Barbiturates Screen,Urine Negative (Negative); Benzodiazepines Screen,Urine Positive (Negative); Cannabinoid Screen,Urine Negative (Negative); Opiate Screen,Urine Positive (Negative); Phencyclidine Screen,Urine Negative (Negative)
[2019-10-01 03:11] LABS: Amorphous Crystals,Urine Occasional /HPF (Few); Apearance,Urine Slightly Hazy (Clear); Bilirubin,Urine Negative (Negative); Blood, Urine Small mg/dL (Negative); Glucose,Urine (UA) Negative (Negative); Hyaline Casts,Urine 48 /LPF (0-3); Ketones,Urine 5 mg/dL (Negative); Mucus,Urine Occasional /LPF (Occasional); Nitrite,Urine Negative (Negative); Protein,Urine 100 MG/DL; RBC,Urine 10 /HPF (0-4); Urine Color Amber (Yellow); Urine Specific Gravity 1.018 (1.001-1.035); WBC,Urine 5 /HPF (0-6)
[2019-10-01 03:18] LABS: Albumin 3.8 G/DL (3.4-5.0); Bilirubin,Total 0.9 MG/DL (0.2-1.0); Calcium 9.3 MG/DL (8.5-10.1); Osmolality,Calculated 279.4 MOS/KG (273-304); Total Protein 7.5 G/DL (6.4-8.3)
[2019-10-01] MEDS ORDERED: NALOXONE 0.4 MG/ML VIAL IV STA ×2 (03:40→03:43)
[2019-10-01] MEDS ORDERED: DEXTROSE 50% 25 GM/50 ML VIAL IV STA (04:04)
[2019-10-01] MEDS ORDERED: DEXTROSE 50% 25 GM/50 ML SYRINGE IV ONE (04:06)
[2019-10-01 07:05] LABS: Ferritin 290.4 ng/ml (8-252)
[2019-10-01] MEDS ORDERED: NITROGLYCERIN SL 0.4 MG TABLET SL PRN (12:29)
[2019-10-01] MEDS ORDERED: FLUTICASONE 50 MCG NASAL SPRAY 16 GM BOTTLE BOTH NARES PRN (12:29)
[2019-10-01] MEDS: FUROSEMIDE 20 MG TABLET PO SCH (13:27)
[2019-10-01 14:24] LABS: ABG Base Excess 7.3 MMOL/L (-2.5-2.5); ABG HCO3 30.9 MMOL/L (20-26); ABG Oxygen Saturation 91.9 % (95-100); ABG PCO2 57.5 MM HG (35-48); ABG PH 7.385 (7.35-7.45); ABG PO2 61.3 MM HG (80-95); ABG TCO2 30.2 MMOL/L (23-27)
[2019-10-01] MEDS: MONTELUKAST 10 MG TABLET PO SCH (20:50)
[2019-10-02] MEDS: THEOPHYLLINE ER (24 HR) 400 MG TABLET PO SCH (08:41)
[2019-10-02] MEDS: CETIRIZINE 10 MG TABLET PO SCH (08:41)
[2019-10-02] MEDS: FAMOTIDINE 20 MG TABLET PO SCH (08:41)
[2019-10-02] MEDS: MULTIVITAMIN (CENTRUM) TABLET PO SCH (08:41)
[2019-10-02] MEDS: ASCORBIC ACID 500 MG TABLET PO SCH (08:41)
[2019-10-02] MEDS: POLYETHYLENE GLYCOL POWDER 17 GM PACK PO SCH (08:41)
[2019-10-02] MEDS: NEBIVOLOL 5 MG TABLET PO SCH ×2 (08:41→09:01)
[2019-10-02] MEDS: POTASSIUM CHLORIDE 10 MEQ TABLET PO SCH (08:41)
[2019-10-02] MEDS: MONTELUKAST 10 MG TABLET PO SCH (21:47)
[2019-10-03] MEDS: THEOPHYLLINE ER (24 HR) 400 MG TABLET PO SCH (09:13)
[2019-10-03] MEDS: MULTIVITAMIN (CENTRUM) TABLET PO SCH (09:13)
[2019-10-03] MEDS: ASCORBIC ACID 500 MG TABLET PO SCH (09:13)
[2019-10-03] MEDS: POLYETHYLENE GLYCOL POWDER 17 GM PACK PO SCH (09:13)
[2019-10-03] MEDS: POTASSIUM CHLORIDE 10 MEQ TABLET PO SCH (09:13)
[2019-10-03] MEDS: NEBIVOLOL 5 MG TABLET PO SCH (09:13)
[2019-10-03] MEDS: FAMOTIDINE 20 MG TABLET PO SCH (09:14)
[2019-10-03] MEDS: CETIRIZINE 10 MG TABLET PO SCH (09:14)
[2019-10-03] MEDS: FUROSEMIDE 20 MG TABLET PO SCH (09:14)
[2019-10-03 14:14] VITALS: BP 116/63
== END 2019-10-03 15:55 | DRG 71 ==
LOC: SUATTDRO → N.ED 02:06 → N.EDINP 08:04 → SUATTDRO 08:04 → N.2E 08:55
PROVIDERS: ADMIT Internal Medicine; ATTEND Internal Medicine